=== PATIENT | female | born 1975 | race Two or more races ===

== ENCOUNTER 2024-07-07 17:11 | Inpatient (IN) | payer MEDICAID, SELFPAY ==
[2024-07-07 17:22] VITALS: BP 166/91; PULSE 105; RESP 18; TEMP 36.8; O2SAT 95; BMI 42.1
--- NOTE | 2024-07-07 17:25 | XR_ITS ---
Examination: CT abdomen and pelvis without contrast. Coronal 3-D reconstructions. Sagittal 2-D reconstructions. Date and time of exam:July 07, 2024 1837 hrs. Indications: Abdominal pain nausea vomiting today, history hernia repair CTDI: vol (mGy): 16.7 DLP: (mGycm): 974 Technique: Axial images of the abdomen have been obtained, 3 mm slice thickness Intravenous contrast material has not been administered. Low dose protocols were performed. One or more of the following dose reduction techniques were used; automated exposure control, adjustment of the mA and/or KV according to patient size, of iterative reconstruction technique. Findings: Diffuse severe fatty infiltration throughout the liver Contracted gallbladder, axial image 85 suspicious for small gallstones Spleen not enlarged No pancreatic or adrenal mass Mild bilateral renal parenchymal scar formation 1 mm midpole nonobstructing left renal calculus axial image 87 No hydronephrosis or ureteral calculi Normal appendix No bowel obstruction Scarring at the umbilical tract consistent with hernia repair Surgical clips in the pelvis as well as rectosigmoid sutures No pelvic mass Contracted urinary bladder Mild osteopenia Impression: Severe diffuse fatty infiltration throughout the liver Recommend hepatobiliary sonography follow-up to confirm gallstones 1 mm midpole nonobstructing left renal calculus Normal appendix Negative for bowel obstruction
--- NOTE | 2024-07-07 17:26 | PD.EDRME ---
Rapid Medical Screening Exam E Arrival date/time: 07/07/24 17:11 48-year-old female with a history of colon cancer, multiple abdominal surgeries, hernia repairs presents to the emergency room with a chief complaint of 10 out of 10 epigastric pain and tenderness, nausea, vomiting. I have greeted and performed a focused initial assessment of this patient. A comprehensive ED assessment and evaluation of the patient, analysis of all test results, and completion of the medical decision making process will be conducted by additional ED providers. Chief Complaint: Abdominal Pain Vital signs: Vital Signs Temperature 98.3 F 07/07/24 17:22 Pulse Rate 105 H 07/07/24 17:22 Respiratory Rate 18 07/07/24 17:22 Blood Pressure 166/91 H 07/07/24 17:22 Pulse Oximetry (%) 95 07/07/24 17:22 Oxygen Delivery Method Room Air 07/07/24 17:22 Vital signs reviewed by provider: Yes
[2024-07-07] MEDS: ONDANSETRON ODT 4 MG TABRAP PO (17:33)
[2024-07-07] MEDS: HYDROcodone/APAP 5/325 TABLET 1 TAB PO (17:33)
[2024-07-07 17:48] LABS: Collection Type, Urine Clean Catch
[2024-07-07 17:51] LABS: Basophils # (Auto) 0.1 Thou/mm3 (0.0-0.2); Basophils % (Auto) 1 % (0-2.5); Eosinophils # (Auto) 0.2 Thou/mm3 (0.0-0.5); Eosinophils % (Auto) 1 % (0-10); Hematocrit 39.2 % (36.0-46.0); Hemoglobin 12.9 g/dL (12.0-16.0); Immature Granulocytes % (Auto) 0 % (0-0); Immature Granulocytes Auto 0.05 Thou/mm3 (0.00-0.00); Lymphocytes # (Auto) 2.9 Thou/mm3 (1.0-4.8); Lymphocytes % (Auto) 22 % (10-50); Mean Corpuscular HGB Conc 32.9 g/dl (31.0-37.0); Mean Corpuscular Hemoglobin 28.9 pg (25.0-35.0); Mean Corpuscular Volume 88 fL (80-100); Monocytes # (Auto) 0.7 Thou/mm3 (0.0-0.8); Monocytes % (Auto) 5 % (0-12); Neutrophils # (Auto) 8.9 Thou/mm3 (1.8-7.7); Neutrophils % (Auto) 70 % (37-80); Nucleated Red Blood Cell % 0 /100 WBC (0); Platelet Count 285 Thou/mm3 (140-440); RDW Standard Deviation 42.6 fL (36.4-46.3); Red Blood Count 4.46 Miln/mm3 (4.00-5.20); White Blood Count 12.8 Thou/mm3 (3.6-11.0)
[2024-07-07 17:55] LABS: Bilirubin,Urine Negative (Negative); Blood,Urine Negative (Negative); Clarity,Urine Clear (Clear/Hazy); Color,Urine Lt-Yellow (Lt Yel-Yel); Glucose, Urine Negative (Negative); Ketones,Urine Negative (Negative); Leukocyte Esterase,Urine Positive (Negative); Nitrite,Urine Negative (Negative); PH,Urine 7.5 (5.0-7.0); Protein,Urine 1+ (Neg - Trace); RBC,Urine 8 /hpf (0-3); Specific Gravity,Urine 1.021 (1.001-1.035); Squamous Epithelial Cell,Urine 2 /hpf (0-5); Urobilinogen,Urine Negative mg/dL (0.0-1.0); WBC,Urine 6 /hpf (0-5)
[2024-07-07 17:56] LABS: HCG Qualitative,Urine Negative
[2024-07-07 18:05] LABS: Alanine Aminotransferase 214 U/L (10-49); Albumin, Serum 4.8 gm/dL (3.5-5.0); Albumin/Globulin Ratio 1.4 (1.2-2.2); Alkaline Phosphatase 148 U/L (46-116); Anion Gap 7 (7-16); Aspartate Amino Transferase 155 U/L (0-34); BUN/Creatinine Ratio 18 Ratio (12-20); Bilirubin,Total 0.4 mg/dL (0.3-1.2); Blood Urea Nitrogen 18 mg/dL (9-23); Calcium 10.9 mg/dL (8.3-10.6); Calcium (Corrected) 10.9 mg/dL (8.5-10.1); Carbon Dioxide 31.5 mMol/L (20.0-31.0); Chloride 101 mMol/L (98-107); Estimated Creatinine Clearance 89.1 mL/min (>60); Globulin 3.4 gm/dL (2.3-3.5); Glucose 212 mg/dL (74-106); Lipase 36 U/L (12-53); Osmolality,Calculated 285 (275-295); Potassium 4.2 mMol/L (3.4-5.1); Sodium 139 mMol/L (136-145); Total Protein 8.2 gm/dL (5.7-8.2); eGFR > 60 See Note
--- NOTE | 2024-07-07 19:23 | PC.NURSE ---
Pt to room 6 at this time from lobby; assumed care.
[2024-07-07 19:28] VITALS: BP 162/106; PULSE 115; RESP 17; TEMP 36.9; O2SAT 96
--- NOTE | 2024-07-07 19:28 | EDNOTE_ITS ---
ED Abdominal Pain RME/HPI General Chief Complaint: Abdominal Pain Stated complaint: ABD PAIN, N/V Arrival date/time: 07/07/24 17:11 Source: patient Mode of arrival: ambulatory Limitations: no limitations RME / HPI RME / HPI narrative: 07/07/24 17:11 48-year-old female with a history of colon cancer, multiple abdominal surgeries, hernia repairs presents to the emergency room with a chief complaint of 10 out of 10 epigastric pain and tenderness, nausea, vomiting. I have greeted and performed a focused initial assessment of this patient. A comprehensive ED assessment and evaluation of the patient, analysis of all test results, and completion of the medical decision making process will be conducted by additional ED providers. Chief complaint: Abdominal pain HPI: Ms. Mendes is a speaking 48-year-old female with past medical history of colon cancer s/p colectomy and anastomosis, ivy-umbilical hernia s/p repair, nonalcoholic steatohepatitis, obesity, primary hypertension and hkw-yqqwlwi-zgvwjcxst type II diabetes mellitus, who presented to the ED with diffuse abdominal pain that started around 3 AM on 07/07/2024. Patient's pain progressively got worse over the last 15 hours. Her last meal was breakfast around 10 AM, she has been unable to tolerate any oral intake since then. She endorses having multiple episodes of vomiting, nonbilious nonbloody, with severe nausea. She denies any fevers, diarrhea or constipation. Her last bowel movement was at 6 AM this morning. Medication list: Metformin Antihypertensives Pending med rec Allergies: NKFDA Social history: Marital?Status:? Tobacco?Use:?Denies ETOH?Use:?Rarely Drug?Note:?Denies Social?History?Note:?Lives?at home with family Family history: unsure Related Data Allergies Allergy/AdvReac Type Severity Reaction Status Date / Time No Known Allergies Allergy Verified 07/07/24 17:13 Review of Systems Review of Systems Systems Reviewed: All systems reviewed, normal except as documented Narrative Review of Systems: GENERAL: Denies fevers/chills or diaphoresis. HEENT: Denies headache or visual/hearing changes. Denies nasal discharge. NEURO: Denies unusual weakness or difficulty speaking. CARDIO: Denies chest pain or palpitations. PULM: Denies SOB, coughing, or wheezing. GI: Diffuse abdominal pain, N/V, no C/D. Reports having BMs URO: Denies burning/itching/pain/urinary changes. ONLINE MARKETING SPECIALIST: Denies menstrual changes, hot flashes. MSK/EXT/SKIN: Denies joint/skeletal/muscle pain, issues/changes in upper or lower extremities, itchiness, or superficial pain. PSYCH: Cooperative, pleasant mood & affect. The rest of the review of systems is otherwise negative. Past Medical History Social History SMOKING STATUS: Never smoker ED Exam Narrative Physical exam: Constitutional Alert, oriented x4, obese HEENT Vision grossly intact. Patent nares. Trachea midline. Respiratory Chest normal on inspection and clear to auscultation bilaterally. Cardiovascular S1 and S2 audible, RRR. No murmurs or carotid bruit. No gross JVD. Abdominal Soft, diffusely tender to palpation. BS +, hepatomegaly, no fluid thrill Genitourinary No bladder tenderness, no flank pain. Normal to palpation. Musculoskeletal Extremities tone within normal limits. 1+ LE edema. Neurological CN II - XII grossly intact. Extremity motor and sensation grossly intact. Skin Warm, dry and intact. No apparent lesions. Psychiatric Patient has a good affect, is cooperative. General Limitations: Present no limitations Course Quality Measures none Orders Category Date Time Status Textile Knitter STAT Care 07/07/24 20:03 Active Continuous Pulse Oximetry STAT Care 07/07/24 20:03 Completed EKG (ED ONLY) *Do not use* NOW Care 07/07/24 20:03 Completed In and Out Catheter X1PRN Care 07/07/24 20:03 Active Insert IV NOW Care 07/07/24 20:03 Active NPO NOW Care 07/07/24 23:36 Active NPO STAT Care 07/07/24 20:03 Active Strict Intake and Output Routine Care 07/07/24 20:03 Ordered Consult to Gastroenterology Routine Cons 07/07/24 23:32 Ordered Diet NPO (NOW) Diet 07/07/24 23:[address] abdomen pelvis wo con Stat Exams 07/07/24 17:25 Completed EKG (ED Only) Stat Exams 07/07/24 20:03 Ordered NM HIDA w pharm Stat Exams 07/07/24 23:33 Ordered US gall bladder Stat Exams 07/07/24 20:02 Completed XR chest 1V portable Stat Exams 07/07/24 20:05 Completed B-Type Natriuretic Peptide Stat Lab 07/07/24 20:20 Completed Blood Culture (Lab) Stat Lab 07/07/24 21:28 Received CBC Stat Lab 07/07/24 17:35 Completed CEA [Carcinoembryonic Antigen] Stat Lab 07/07/24 23:32 Ordered CMP [Comprehensive Metabolic Panel] Stat Lab 07/07/24 17:35 Completed HCG Qualitative,Urine Stat Lab 07/07/24 17:35 Completed LDH (Lactate Dehydrogenase) Stat Lab 07/07/24 20:20 Completed Lactate (Lactic Acid) Stat Lab 07/07/24 20:20 Completed Lactic Acid [Lactate (Lactic Acid)] Routine Lab 07/07/24 23:30 Ordered Lactic Acid, 3 HR Stat Lab 07/07/24 23:33 Ordered Lipase Stat Lab 07/07/24 17:35 Completed Magnesium Stat Lab 07/07/24 20:20 Completed Partial Thromboplastin Time Stat Lab 07/07/24 20:20 Completed Phosphorous Stat Lab 07/07/24 20:20 Completed Procalcitonin Stat Lab 07/07/24 20:20 Completed Prothrombin Time with INR Stat Lab 07/07/24 20:20 Completed Troponin I Stat Lab 07/07/24 20:20 Completed UA [Urinalysis] Stat Lab 07/07/24 17:35 Completed Urine Culture Stat Lab 07/07/24 17:25 Received Acetaminophen Tab [Tylenol Tab] Med 07/07/24 20:40 Discontinued 650 mg PO X1 ONE HYDROcodone*/APAP 5/325 [[place] 5/325] Med 07/07/24 17:25 Discontinued 1 tab PO X1 ONE Magnesium Sulfate 2 GM Ivpb [Magnesium Sulfate Ivpb] Med 07/07/24 22:10 Active 2 gm in 50 ml IV X1 Morphine Inj Med 07/07/24 20:40 Active 2 mg IVP Q2HR PRN Ondansetron Inj [Zofran Inj] Med 07/07/24 22:00 Active 4 mg IV Q2HR PRN Ondansetron Odt [Zofran Odt] Med 07/07/24 17:25 Discontinued 4 mg PO X1 ONE Pantoprazole Inj [Protonix Inj] Med 07/07/24 20:42 Discontinued 40 mg IV X1 ONE Piper/Tazo 3.375 gm [Zosyn] Med 07/07/24 20:03 Discontinued 3.375 gm in 50 ml IV X1 Sodium Chloride 0.9% 1000 ml [Ns] 1,000 ml Med 07/07/24 22:09 Discontinued IV 999 mls/hr bisacodyL [Dulcolax] Med 07/07/24 23:18 Stop Req 5 mg PO X1 ONE Vital Signs Vital signs: Vital Signs Temperature 98.3 F 07/07/24 17:22 Pulse Rate 105 H 07/07/24 17:22 Respiratory Rate 18 07/07/24 17:22 Blood Pressure 166/91 H 07/07/24 17:22 Pulse Oximetry (%) 95 07/07/24 17:22 Oxygen Delivery Method Room Air 07/07/24 17:22 Abdominal Pain MDM MDM Narrative MDM Narrative:: Scribe Attestation: IMelany am scribing for and in the presence of Dr. Li. Provider Notation: Although this document has been carefully reviewed, there may still be some phonetic and other typographical errors. These errors are purely grammatical due to imperfections in the software program and should not be construed in any way to compromise the substance of the patient's medical care during this visit. Patient data External records reviewed:: [facility] previous records Clinical information provided by:: patient Social determinants that could affect healthcare access:: none Patient has the following chronic illnesses:: colon cancer, multiple abdominal surgeries, hernia repairs How is presenting disease/condition affected by chronic disease/condition?: uneffected by Evaluation data The following diagnostics were reviewed and interpreted by me:: lab results and radiology exam(s) Lab and/or radiology exams considered but not ordered:: None Interpretation Summary: CXR shows normal cardiac silhouette, normal sharp diaphragmatic edge, no infiltrates, normal costophrenic angles, according to my interpretation. Examination: CT abdomen and pelvis without contrast. Date and time of exam:July 07, 2024 1837 hrs. Indications: Abdominal pain nausea vomiting today, history hernia repair Findings: Diffuse severe fatty infiltration throughout the liver Contracted gallbladder, axial image 85 suspicious for small gallstones Spleen not enlarged No pancreatic or adrenal mass Mild bilateral renal parenchymal scar formation 1 mm midpole nonobstructing left renal calculus axial image 87 No hydronephrosis or ureteral calculi Normal appendix No bowel obstruction Scarring at the umbilical tract consistent with hernia repair Surgical clips in the pelvis as well as rectosigmoid sutures No pelvic mass Contracted urinary bladder Mild osteopenia Impression: Severe diffuse fatty infiltration throughout the liver Recommend hepatobiliary sonography follow-up to confirm gallstones 1 mm midpole nonobstructing left renal calculus Normal appendix Negative for bowel obstruction Dictated By: Dandre Casey MD Medications / Prescriptions Medications or Prescriptions considered but not ordered:: None Medication administrations:: Medication Administration History Bisacodyl (Bisacodyl 5 Mg Tabec) 5 mg PO X1 ONE; Protocol Stop: 07/07/24 23:19 Magnesium Sulfate (Magnesium Sulfate Ivpb) 2 gm in 50 mls @ 25 mls/hr IV X1 ONE Stop: 07/08/24 00:09 Last Admin: 07/07/24 22:52 Dose: 25 mls/hr Documented By: KG Morphine Sulfate (Morphine Sulf Inj 10 Mg/Ml Vial) 2 mg IVP Q2HR PRN PRN Reason: pain 6-10 Stop: 07/12/24 21:59 Last Admin: 07/07/24 21:44 Dose: 2 mg Documented By: KG Ondansetron HCl (Ondansetron Inj 2 Mg/Ml Inj 2 Ml) 4 mg IV Q2HR PRN; Protocol PRN Reason: NAUSEA OR VOMITING Stop: 08/06/24 21:59 Last Admin: 07/07/24 21:44 Dose: 4 mg Documented By: KG Discontinued Medications Acetaminophen (Acetaminophen 325 Mg Tablet) 650 mg PO X1 ONE Stop: 07/07/24 20:41 Last Admin: 07/07/24 21:00 Dose: 650 mg Documented By: KG Hydrocodone Bitart/Acetaminophen (Hydrocodone/Apap 5/325 Tablet) 1 tab PO X1 ONE Stop: 07/07/24 17:26 Last Admin: 07/07/24 17:33 Dose: 1 tab Documented By: Piperacillin/Tazobactam/Dextrose (Zosyn) 3.375 gm in 50 mls @ 100 mls/hr IV X1 ONE Stop: 07/07/24 20:32 Last Infusion: 07/07/24 21:26 Dose: Infused Documented By: Admin: 07/07/24 20:56 Dose: 100 mls/hr Documented By: KG Sodium Chloride (Ns) 1,000 mls @ 999 mls/hr IV .Q1H1M ONE Stop: 07/07/24 23:09 Last Admin: 07/07/24 22:52 Dose: 999 mls/hr Documented By: KG Ondansetron HCl (Ondansetron Odt 4 Mg Tabrap) 4 mg PO X1 ONE; Protocol Stop: 07/07/24 17:26 Last Admin: 07/07/24 17:33 Dose: 4 mg Documented By: Pantoprazole Sodium (Pantoprazole Inj 40 Mg Vial) 40 mg IV X1 ONE Stop: 07/07/24 20:43 Last Admin: 07/07/24 20:57 Dose: 40 mg Documented By: KG As above Consultations Consultation(s) initiated? (list below): Yes Consultation #1 (Physician, Specialty, Details): GI - Dr Cuba Diagnosis Differential diagnosis abdominal pain: abdominal pain, constipation, pancreatitis and small bowel obstruction Most likely diagnosis given after review of the tests above:: Sepssi 2/2 UTI vs. cholecystitis vs. pancreatitis Admission Indicated Admission indicated?: indicated Admission Request Was there a request for admission?: Yes Admission Attestation Admission request attestation: Discussed case with Dr Chester from Hospitalist service regarding admission. Discussed patients ED course, exam findings, labs, and radiology results. The Hospitalist team agrees to accept the patient for admission. Disposition Plan Disposition Plan: Admit Discharge Attestation Discharge Attestation: Patient is a 48-year-old female who came into the ED for progressively worsening abdominal pain, she has a history of multiple abdominal surgeries. Initial body workup remarkable for leukocytosis 12.8, lactic acid 2.2 and transaminitis. Vitals showed tachycardia. CT abdomen is negative for any obstruction, gallbladder ultrasound negative. Patient was given morphine x 1, with significant improvement in abdominal pain. However when consuming water, epigastric pain was reproduced. Patient agrees to be admitted for further evaluation. Gastroenterology Dr. Cuba was consulted for recommendations, will get HIDA scan and keep patient n.p.o. for possible EGD in the morning. Hospitalist team informed, agrees to admit patient. Discharge Plan Plan Patient Disposition: HOME (Self Care) Patient condition on transfer: Stable Prescriptions/Referrals Referrals: Adrian Harding [Primary Care Provider] - In 1 week Problem List Clinical Impression: Abdominal pain Patient/Caregiver Discharge Instructions Print Language: Occitan Stand Alone Forms: [employer] Award Info., Patient Portal Info Letter
--- NOTE | 2024-07-07 19:50 | PC.NURSE ---
Dr. Li at the bedside,.
--- NOTE | 2024-07-07 20:02 | XR_ITS ---
Examination: Abdomen sonogram, Limited Date and time of exam: July 07, 2024 2019 hrs. Indications: Elevated liver function tests on laboratory examination today with right upper abdominal pain Technique: Real-time marcos scale transabdominal sonographic images of the upper abdomen obtained. Findings: Negative for gallstones Gallbladder wall 0.3 cm no edema Common bile duct 0.3 cm Pancreatic head 4.3 cm Liver 20.9 cm fatty infiltration no focal liver lesions Normal hepatopedal portal venous oh Patent IVC Impression: Normal gallbladder Pancreas is measured large by the technologist on this study but no pancreatic masses noted on the CT examination today Moderate hepatomegaly fatty infiltration
--- NOTE | 2024-07-07 20:05 | XR_ITS ---
Examination: AP chest single view Technique one AP portable upright chest single view Exam date and time: July 07, 20242036 hrs. Indications: Coughing today. Findings: Normal heart size. Lungs are clear. The osseous structures are intact Impression: No active disease
[2024-07-07 20:23] VITALS: PULSE 101
[2024-07-07 20:25] VITALS: BP 133/87; PULSE 101; RESP 20; O2SAT 96
--- NOTE | 2024-07-07 20:25 | PC.NURSE ---
platform power technician at the bedside for exam.
[2024-07-07 20:36] LABS: Lactate (Lactic Acid) 2.2 mMol/L (0.4-2.0)
[2024-07-07] MEDS: PIPER/TAZO 3.375 GM 3.375 GM/50 ML BAG IV (20:56)
[2024-07-07] MEDS: PANTOPRAZOLE INJ 40 MG VIAL IV (20:57)
[2024-07-07] MEDS: ACETAMINOPHEN 325 MG TABLET 650 MG PO (21:00)
[2024-07-07 21:03] LABS: B-Type Natriuretic Peptide < 20 pg/mL (0-100)
[2024-07-07 21:14] LABS: Prothrombin Time 10.6 Seconds (9.0-12.2)
[2024-07-07 21:34] LABS: Magnesium 1.7 mg/dL (1.6-2.6); Phosphorous 3.6 mg/dL (2.4-5.1); Procalcitonin 0.17 ng/ml (0.0-0.49); Troponin I < 0.002 ng/mL (0.0-0.045)
[2024-07-07] MEDS: ONDANSETRON INJ 2 MG/ML INJ 2 ML 4 MG IV (21:44)
[2024-07-07] MEDS: MORPHINE SULF INJ 10 MG/ML VIAL 2 MG IVP (21:44)
[2024-07-07 21:46] LABS: LDH (Lactate Dehydrogenase) 314 U/L (120-246)
[2024-07-07 21:47] VITALS: BP 101/75; PULSE 101; RESP 16; O2SAT 96
[2024-07-07] MEDS: Magnesium Sulfate 2 GM Ivpb 2 GM/50 ML BAG IV (22:52)
[2024-07-07] MEDS: SODIUM CHLORIDE 0.9% 1000 ML 1,000 ML 999 ML IV (22:52)
[2024-07-07 23:33] LABS: Reflex Lactate? Y
--- NOTE | 2024-07-07 23:33 | XR_ITS ---
Examination: SHANTANU, hepatobiliary radioisotope scan Gallbladder ejection fraction study. Date and time of exam: July 08, 2024 1354 hours INDICATIONS: Multiple abdominal wall hernia repairs, malignant neoplasm of the colon, elevated liver function tests and abdominal pain this week Technique: 6.2 mCi of 99M Hepatolite administered. Serial imaging then obtained from immediate through 60 minutes. 2.4 mcg selective catheter Kinevac administered for gallbladder ejection fraction study. Findings: Radioisotope activity within the liver is reasonably homogenous. Gallbladder, common bile duct small bowel activity noted Impression: Gallbladder activity Abnormal gallbladder ejection fraction, 13%, normal greater than 35%
[2024-07-07 23:42] LABS: Lactate (Lactic Acid) 1.1 mMol/L (0.4-2.0)
[2024-07-08] VITALS (12 sets, daily range): BP systolic 108–146; BP diastolic 72–93; PULSE 74–92; RESP 16–96; TEMP 36.3–36.9; O2SAT 94–98; BMI 42.1
--- NOTE | 2024-07-08 00:48 | PD.RESHP ---
Documentation for date of: 07/08/24 HPI History of Present Illness Chief complaint: Abdominal pain and Vomiting History of present illness: HPI: Patient is Italian-speaking, interview facilitated by registered healthcare centrifugal separator. Patient is a 48-year-old female with a past medical history significant for MASH, endometriosis, NIDDM type II, history of umbilical hernia and multiple abdominal wall hernias s/p repair, history of colon cancer s/p left hemicolectomy 2020. Patient presented today with a chief complaint of abdominal pain and vomiting. Patient stated that on 07/06/2024 she awoke from sleep at approximately 11 PM with severe epigastric abdominal pain. It was described as bloating, severe /10, no radiation, initially constant but now intermittent. No alleviating factors and aggravated by p.o. food and liquid intake. Patient's last meal was approximately 10 AM yesterday morning. Her pain was also associated with vomiting. She stated that that approximately 4 PM yesterday afternoon she began vomiting. Approximately 6 episodes she had before presenting to the emergency department. She endorsed food contents and denied bilious emesis, hematemesis and coffee-ground emesis. Patient also denied any recent painkillers or NSAID use. Last episode of emesis approximately 6 PM yesterday. Upon presentation to the ED pain initially decreased after hydrocodone and morphine and nausea initially subsided after Zofran. However after patient was offered water to drink and again her abdominal pain was aggrevated. ED course: BP 166/91 ----> 101/75, P101, RR 16, T98.4F, SpO2 96% on room air. Labs significant for NA 139, K4.2, Mg 1.7, CO2 31.5, BUN 18, CR 1, glucose 212, AST 155, ALT 2.4, ALP 148, LDH 314. Urinalysis significant for 1+ protein and leukocyte esterase positive. Chest x-ray negative for any signs of consolidation, pulmonary edema or pleural effusion. Gallbladder ultrasound significant for level of 20.9 cm with fatty infiltrates. Abdomen/pelvis CT significant for fatty liver and contracted gallbladder. No signs of small bowel obstruction Patient received hydrocodone x 1, morphine 2 Mg IV x 1 and Zofran 4 Mg IV x 1. Patient will be admitted for workup and management of abdominal pain with vomiting. GI, Dr. Cuba consulted and closely following the case. Appreciate recommendations Review of Systems Review of Systems Narrative Review of Systems: GENERAL: Denies fever/chills or diaphoresis. HEENT: Denies headaches or visual changes. Denies discharge. Neuro: Denies unusual weakness or difficulty speaking. CARDIO: Denies chest pain or palpitations. PULM: Denies SOB, couging or wheezing. GI: As above URO: Denies buring/itching/pain/urinary changes. 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 MSK/EXT/SKIN: Denies joint/skeletal/muschle pain, issues/changes in upper or lower extremities, itchiness, or superficial pain. PSYCH: Cooperative, pleasant mood & affect. The rest of the review of systems is otherwise negative. Past Medical History Past Medical History Comments [facility] COMMENT: Past medical history: ? MASH ? Endometriosis ? NIDDM type II ? History of colon cancer s/p left hemicolectomy [2020] Medication list: ?Awaiting reconciliation Past surgical history: ? Umbilical hernia repair 5 months ago ? Multiple abdominal wall hernia repairs ? Laparoscopic ablation for endometriosis ? Left hemicolectomy for colon cancer 2020 Allergies: NKFDA Social history: Occupational History: Never worked Education Level: Attended elementary school in [place] Marital Status: with 4 kids Tobacco use: Denies ETHO use: Has about 1 drink per year Illicit drug use: Denies Social History Note: lives with and Kids Family History: Mother - DM, HTN Father- HTN Exam Vital Signs Temp Pulse Resp BP Pulse Ox O2 Del Method 98.1 F 92 18 113/72 97 Room Air 07/08/24 00:10 07/08/24 00:09 07/08/24 00:09 07/08/24 00:09 07/08/24 00:09 07/08/24 00:09 Narrative Exam Constitutional Alert, oriented x 3 and mild discomfort. Obese female on O2 via NC HEENT Vision grossly intact. Patent nares. Trachea midline Respiratory Chest normal on inspection and clear auscultation bilaterally Cardiovascular S1 and S2 audible, RRR. No murmurs carotid bruit. JVD not assessed Abdominal Soft, obese and tender to light palpation in right upper quadrant and epigastrium, mass extending from right costal margin to right lower quadrant most consistent with hepatomegaly. BS + Genitourinary No bladder tenderness, no flank pain. Normal to palpation Musculoskeletal Extremities tone within normal limits. No LE edema. Neurological CN II - XII grossly intact. Extremity motor and sensation grossly intact. Skin Warm, dry and intact. No apparent lesions. Psychiatric Patient has good affect, is cooperative Results: Labs 07/07/24 17:35 07/07/24 17:35 Labs: Short CBC 07/07/24 Range/Units 17:35 WBC 12.8 H (3.6-11.0) Thou/mm3 Hgb 12.9 (12.0-16.0) g/dL Hct 39.2 (36.0-46.0) % Plt Count 285 (140-440) Thou/mm3 BMP 07/07/24 17:35 Sodium 139 Potassium 4.2 Chloride 101 Carbon Dioxide 31.5 H BUN 18 Creatinine 1.0 Glucose 212 H Calcium 10.9 H Cardiac Enzymes 07/07/24 Range/Units 20:20 Troponin I < 0.002 (0.0-0.045) ng/mL Liver Function 07/07/24 Range/Units 17:35 Total Bilirubin 0.4 (0.3-1.2) mg/dL AST 155 H (0-34) U/L ALT 214 H (10-49) U/L Alkaline Phosphatase 148 H (46-116) U/L Albumin 4.8 (3.5-5.0) gm/dL Urine 07/07/24 Range/Units 17:35 Urine Color Lt-Yellow (Lt Yel-Yel) Urine Clarity Clear (Clear/Hazy) Urine pH 7.5 H (5.0-7.0) Ur Specific Novi 1.021 (1.001-1.035) Urine Protein 1+ A (Neg - Trace) Urine Glucose (UA) Negative (Negative) Quality Measures Quality Measures none Medications Home Medications and Allergies Allergies Allergy/AdvReac Type Severity Reaction Status Date / Time No Known Allergies Allergy Verified 07/07/24 17:13 Visit Medications Albuterol/Ipratropium (Albuterol/Ipratropium (Duoneb) Rt Poonam 3 Ml Nebu) 3 ml INH Q2HR PRN PRN Reason: SHORTNESS OF BREATH OR WHEEZE Stop: 08/07/24 00:32 Dextrose (Dextrose 50%-Water Inj 50 Ml Syringe) 50 ml IV Q15MIN PRN PRN Reason: BG <50 OR BG <70 & pt unresponsive Stop: 08/07/24 00:44 Glucagon (Glucagon Inj 1 Mg Vial) 1 mg IM Q15MIN PRN PRN Reason: BG <70, and no IV access Heparin Sodium (Porcine) (Heparin Sod Inj 5000 Unit/Ml Vial) 5,000 unit SC Q8HR MARK Stop: 07/22/24 05:59 Insulin Human Lispro (Insulin Lispro (Admelog) 1 Unit/0.01 Ml Unit) 0 unit SC ACHS MARK; Protocol Stop: 08/07/24 07:29 Ketorolac Tromethamine (Ketorolac Inj 30 Mg/Ml Vial) 30 mg IVP Q6HR PRN PRN Reason: PAIN SCALE 4-10(Mod-Sev Stop: 07/13/24 00:42 Ondansetron HCl (Ondansetron Inj 2 Mg/Ml Inj 2 Ml) 4 mg IV Q2HR PRN; Protocol PRN Reason: NAUSEA OR VOMITING Stop: 08/06/24 21:59 Last Admin: 07/07/24 21:44 Dose: 4 mg Discontinued Medications Acetaminophen (Acetaminophen 325 Mg Tablet) 650 mg PO X1 ONE Stop: 07/07/24 20:41 Last Admin: 07/07/24 21:00 Dose: 650 mg Hydrocodone Bitart/Acetaminophen (Hydrocodone/Apap 5/325 Tablet) 1 tab PO X1 ONE Stop: 07/07/24 17:26 Last Admin: 07/07/24 17:33 Dose: 1 tab Bisacodyl (Bisacodyl 5 Mg Tabec) 5 mg PO X1 ONE; Protocol Stop: 07/07/24 23:19 Piperacillin/Tazobactam/Dextrose (Zosyn) 3.375 gm in 50 mls @ 100 mls/hr IV X1 ONE Stop: 07/07/24 20:32 Last Infusion: 07/07/24 21:26 Dose: Infused Sodium Chloride (Ns) 1,000 mls @ 999 mls/hr IV .Q1H1M ONE Stop: 07/07/24 23:09 Last Infusion: 07/07/24 23:53 Dose: Infused Magnesium Sulfate (Magnesium Sulfate Ivpb) 2 gm in 50 mls @ 25 mls/hr IV X1 ONE Stop: 07/08/24 00:09 Last Admin: 07/07/24 22:52 Dose: 25 mls/hr Morphine Sulfate (Morphine Sulf Inj 10 Mg/Ml Vial) 2 mg IVP Q2HR PRN PRN Reason: pain 6-10 Stop: 07/12/24 21:59 Last Admin: 07/07/24 21:44 Dose: 2 mg Ondansetron HCl (Ondansetron Odt 4 Mg Tabrap) 4 mg PO X1 ONE; Protocol Stop: 07/07/24 17:26 Last Admin: 07/07/24 17:33 Dose: 4 mg Pantoprazole Sodium (Pantoprazole Inj 40 Mg Vial) 40 mg IV X1 ONE Stop: 07/07/24 20:43 Last Admin: 07/07/24 20:57 Dose: 40 mg Assessment & Plan Plan Patient is Italian-speaking, interview facilitated by registered healthcare centrifugal separator. Patient is a 48-year-old female with a past medical history significant for MASH, endometriosis, NIDDM type II, history of umbilical hernia and multiple abdominal wall hernias s/p repair, history of colon cancer s/p left hemicolectomy 2020. Patient presented today with a chief complaint of abdominal pain and vomiting. Patient will be admitted for workup and management of abdominal pain with vomiting. 1. Abdominal pain 2. Vomiting?resolved Patient had 10/10 constant abdominal pain that woke her up from sleep on.5 Also had associated 6 episodes of vomiting food contents. On exam patient tender to light palpation right upper quadrant and epigastric. DDx: Gallbladder dyskinesia, acalculous cholecystitis, peptic ulcer disease, gastroenteritis, hepatitis A, endometriosis, partial SBO. Gallbladder ultrasound significant for level of 20.9 cm with fatty infiltrates. Abdomen/pelvis CT significant for fatty liver and contracted gallbladder. No signs of small bowel obstruction Plan: ? N.p.o. ? Lipid panel ordered ? EGD in the am ? HIDA scan today ordered ? Hepatitis panel ordered - CEA ordered ? Ondansetron 4 Mg IV Q2 hourly as needed for vomiting or nausea ? Ketorolac 30 Mg IV Q6 hourly as needed for pain. Opioids need to be discontinued at least 11-16 hours prior to HIDA scan. ? GI, Dr. Cuba consulted and is closely following the case. Appreciate recommendations. 3. MASH 4. Transaminitis Patient states that she has fatty liver with unsure of name of any medication that she is taking. Gallbladder ultrasound significant for level of 20.9 cm with fatty infiltrates. AST 135, ALT 214, ALP 148, LDH 314 Plan: ? Lipid panel ordered ? Monitor LFTs on CMP 5. Hypercalcemia On admission corrected Ca 10.9 Possibly secondary to dehydration from vomiting Plan: ? Normal saline maintenance IV fluids at 75 cc/h ? Monitor calcium on a.m. CMP 6. Fil-osqnfap-sptrngidn diabetes mellitus type 2 7. Obesity class III Patient says her home medication is metformin but unsure of the dose. Patient's BMI 42.1 Plan: ? Sliding scale insulin to cover for any glucose spikes ? Patient may benefit from Ozempic on discharge for management of both her diabetes and morbid obesity. ? Patient may also benefit from CGM on discharge. 8. History of colon cancer s/p left hemicolectomy 2020 Patient states that she had colon cancer and a colectomy performed 4 years ago. Abdomen/pelvis CT completed on 07/07/2024 findings include: Scarring at the umbilical tract consistent with hernia repair Surgical clips in the pelvis as well as rectosigmoid sutures Plan: ? Obtain medical records from colon surgery 9. Endometriosis Has had previous laparoscopic ablation 10. Asymptomatic Bacteruria Patient denies any increase in frequency, dysuria or LUTS. Urinalysis significant for 1+ protein and leukocyte esterase positive. No need for Antibiotics Health maintenance: Disposition: EGD, HIDA scan. Pain control Diet: NPO Lines: pIVs GI Prophylaxis: None Thrombo Prophylaxis: Heparin 5000 U sc q 8 hrly Code status: FULL CODE Plan of care discussed with Attending Dr. Byron Fine MD PGY 1 Attending Provider Attestation/Addendum 48-year-old obese female with colon cancer sp left hemicolectomy, history of hernia surgery, [facility] was seen in the ER complaining of abdominal pain nausea and vomiting. Ultrasound of the abdomen showed hepatomegaly with fatty infiltration. CT scan of the abdomen showed severe diffuse fatty infiltration of the liver & Nonobstructing left-sided kidney stone. The patient was referred to GI Dr. Cuba who recommended EGD and HIDA.
[2024-07-08] MEDS: KETOROLAC INJ 30 MG/ML VIAL IVP (01:33)
[2024-07-08] MEDS: HEPARIN SOD INJ 5000 UNIT/ML VIAL SC (05:44)
[2024-07-08] MEDS: SODIUM CHLORIDE 0.9% 1000 ML 1,000 ML 75 ML IV (05:44)
[2024-07-08 06:51] LABS: Basophils # (Auto) 0.1 Thou/mm3 (0.0-0.2); Basophils % (Auto) 1 % (0-2.5); Eosinophils # (Auto) 0.1 Thou/mm3 (0.0-0.5); Eosinophils % (Auto) 2 % (0-10); Hematocrit 34.6 % (36.0-46.0); Hemoglobin 11.3 g/dL (12.0-16.0); Immature Granulocytes % (Auto) 0 % (0-0); Immature Granulocytes Auto 0.02 Thou/mm3 (0.00-0.00); Lymphocytes # (Auto) 2.8 Thou/mm3 (1.0-4.8); Lymphocytes % (Auto) 33 % (10-50); Mean Corpuscular HGB Conc 32.7 g/dl (31.0-37.0); Mean Corpuscular Volume 89 fL (80-100); Monocytes # (Auto) 0.5 Thou/mm3 (0.0-0.8); Monocytes % (Auto) 6 % (0-12); Neutrophils # (Auto) 5.1 Thou/mm3 (1.8-7.7); Neutrophils % (Auto) 59 % (37-80); Nucleated Red Blood Cell % 0 /100 WBC (0); Platelet Count 269 Thou/mm3 (140-440); RDW Standard Deviation 44.2 fL (36.4-46.3); Red Blood Count 3.89 Miln/mm3 (4.00-5.20); White Blood Count 8.7 Thou/mm3 (3.6-11.0)
[2024-07-08 07:25] LABS: Glucose Estimated Average 197 mg/dL (80-131); Hemoglobin A1C 8.5 % Hgb (4.8-6.0)
[2024-07-08] MEDS: INSULIN LISPRO (AdmeLOG) 1 UNIT/0.01 ML UNIT SC (07:38)
--- NOTE | 2024-07-08 07:45 | PC.NURSE ---
Report given to biomedical manager viai phone.
[2024-07-08 07:48] LABS: Alanine Aminotransferase 160 U/L (10-49); Albumin, Serum 4.3 gm/dL (3.5-5.0); Albumin/Globulin Ratio 1.5 (1.2-2.2); Alkaline Phosphatase 125 U/L (46-116); Anion Gap 9 (7-16); Aspartate Amino Transferase 93 U/L (0-34); BUN/Creatinine Ratio 24 Ratio (12-20); Bilirubin,Total 0.4 mg/dL (0.3-1.2); Blood Urea Nitrogen 22 mg/dL (9-23); Calcium 9.5 mg/dL (8.3-10.6); Calcium (Corrected) 9.5 mg/dL (8.5-10.1); Carbon Dioxide 26.8 mMol/L (20.0-31.0); Cardiac Risk Estimate 4.8 RATIO (3.7-5.6); Chloride 105 mMol/L (98-107); Cholesterol 173 mg/dL (132-200); Creatinine (Component) 0.9 mg/dL (0.6-1.3); Globulin 2.8 gm/dL (2.3-3.5); Glucose 170 mg/dL (74-106); HDL Cholesterol 36 mg/dL (40-60); LDL Cholesterol,Calculated 89 mg/dL (0-130); Magnesium 2.3 mg/dL (1.6-2.6); Osmolality,Calculated 288 (275-295); Potassium 4.1 mMol/L (3.4-5.1); Sodium 141 mMol/L (136-145); Total Protein 7.1 gm/dL (5.7-8.2); Triglycerides 240 mg/dL (30-150); eGFR > 60 See Note
[2024-07-08 08:06] LABS: Thyroid Stimulating Hormone 1.34 uIU/mL (0.55-4.78); Troponin I < 0.002 ng/mL (0.0-0.045)
--- NOTE | 2024-07-08 09:31 | ESPR_ITS ---
<Statement entered by Kelley Bell MD - 07/08/24 13:32> Patient was admitted overnight for generalized pain abdomen pending HIDA and GI evaluation I discussed with and supervised my co-resident involved in the care of this patient. I agree with the assessment and plan as documented above. Kelley Bell,PGY-3 Disclaimer: Despite multiple revisions, due to the dictation software being used, the document below may not be free of grammatical errors including phonetic/typographic errors. However, this does not deter from our commitment to providing health care in the patient's best interest in mind.. Documentation for date of: 07/08/24 Subjective Subjective Interval history: Patient admitted this morning for acute abdominal pain. I saw the patient she reported her pain has much improved since yesterday. She is currently n.p.o. pending evaluation by GI, possible EGD and HIDA. Denies fever, chills, headaches, chest pain, sob, cough, worsening abdominal pain or other GI symptoms such as/N/V, or urinary symptoms. Exam Vital Signs Temp Pulse Resp BP Pulse Ox O2 Del Method O2 Flow Rate 98.1 F 79 16 117/92 H 94 L Room Air 1 07/08/24 00:10 07/08/24 06:00 07/08/24 06:00 07/08/24 06:00 07/08/24 06:00 07/08/24 06:00 07/08/24 02:00 Narrative Exam GENERAL * Normal appearing obese female, NAD, on room air HEENT * NCAT.?CORDELIA. Oral mucosa is moist. Patent Nares NECK * Supple, nontender, no thyromegaly, no meningismus, no JVD, no step offs CHEST * RRR, no m/g/r * CTAB, no w/r/r. Symmetrical chest rise. No intercostal subcostal retraction * Atraumatic, nontender, no crepitus, symmetrical expansion. ABDOMEN * Distended, soft, nontender. No guarding/rebound tenderness/masses. * Bowel sounds presents EXTREMITIES * Nontender, no cyanosis, no edema * No edema/cyanosis.? SKIN * Warm and dry, no jaundice/rashes. NEUROMUSCULAR * No lumbar or midline, no CVA, no paraspinal muscle spasm or tenderness. * Moves all 4 extremities well, with full ROM and good CSM. * YOUNG x4, CN II-XII grossly intact. * No focal neurologic deficits. PSYCHIATRY * Normal mood and affect, cooperative, no SI or HI or hallucinations. Objective Labs 07/08/24 06:10 07/08/24 06:10 Labs: Laboratory Results - last 24 hr 07/07/24 07/07/24 07/07/24 17:35 20:20 23:32 WBC 12.8 H RBC 4.46 Hgb 12.9 Hct 39.2 MCV 88 MCH 28.9 MCHC 32.9 RDW Std Deviation 42.6 Plt Count 285 Neut % (Auto) 70 Lymph % (Auto) 22 Norton % (Auto) 5 Eos % (Auto) 1 Baso % (Auto) 1 Neut # (Auto) 8.9 H Lymph # (Auto) 2.9 Norton # (Auto) 0.7 Eos # (Auto) 0.2 Baso # (Auto) 0.1 Immature Gran # (Auto) 0.05 H Absolute Nucleated RBC 0.00 Immature Gran % 0 Nucleated RBC % 0 PT 10.6 INR 1.0 APTT 24.0 Sodium 139 Potassium 4.2 Chloride 101 Carbon Dioxide 31.5 H Anion Gap 7 BUN 18 Creatinine 1.0 Estim Creat Clear Calc 89.1 eGFR > 60 BUN/Creatinine Ratio [address] Glu mg/dL Hemoglobin A1c Calculated Osmolality 285 Lactic Acid 2.2 H 1.1 Calcium 10.9 H Corrected Calcium 10.9 H Phosphorus 3.6 Magnesium 1.7 Total Bilirubin 0.4 AST 155 H ALT 214 H Alkaline Phosphatase 148 H Lactate Dehydrogenase 314 H Troponin I < 0.002 B-Natriuretic Peptide < 20 Total Protein 8.2 Albumin 4.8 Globulin 3.4 Albumin/Globulin Ratio 1.4 Triglycerides Cholesterol LDL Cholesterol, Calc HDL Cholesterol Cholesterol/HDL Ratio Lipase 36 Procalcitonin 0.17 TSH Ur Collection Type Clean Catch Urine Color Lt-Yellow Urine Clarity Clear Urine pH 7.5 H Ur Specific Badin 1.021 Urine Protein 1+ A Urine Glucose (UA) Negative Urine Ketones Negative Urine Blood Negative Urine Nitrite Negative Urine Bilirubin Negative Urine Urobilinogen (Auto) Negative Ur Leukocyte Esterase Positive Urine RBC 8 H Urine WBC 6 H Ur Squamous Epith Cells 2 Urine Bacteria None Urine HCG, Qual Negative 07/08/24 06:10 WBC 8.7 RBC 3.89 L Hgb 11.3 L Hct 34.6 L MCV 89 MCH 29.0 MCHC 32.7 RDW Std Deviation 44.2 Plt Count 269 Neut % (Auto) 59 Lymph % (Auto) 33 Norton % (Auto) 6 Eos % (Auto) 2 Baso % (Auto) 1 Neut # (Auto) 5.1 Lymph # (Auto) 2.8 Norton # (Auto) 0.5 Eos # (Auto) 0.1 Baso # (Auto) 0.1 Immature Gran # (Auto) 0.02 H Absolute Nucleated RBC 0.00 Immature Gran % 0 Nucleated RBC % 0 PT INR APTT Sodium 141 Potassium 4.1 Chloride 105 Carbon Dioxide 26.8 Anion Gap 9 BUN 22 Creatinine 0.9 Estim Creat Clear Calc 99.0 eGFR > 60 BUN/Creatinine Ratio 24 H Glucose [address] Glu mg/dL 197 H Hemoglobin A1c 8.5 H Calculated Osmolality 288 Lactic Acid Calcium 9.5 Corrected Calcium 9.5 Phosphorus Magnesium 2.3 Total Bilirubin 0.4 AST 93 H ALT 160 H Alkaline Phosphatase 125 H D Lactate Dehydrogenase Troponin I < 0.002 B-Natriuretic Peptide Total Protein 7.1 Albumin 4.3 D Globulin 2.8 Albumin/Globulin Ratio 1.5 Triglycerides 240 H Cholesterol 173 LDL Cholesterol, Calc 89 HDL Cholesterol 36 L Cholesterol/HDL Ratio 4.8 Lipase Procalcitonin TSH 1.34 Ur Collection Type Urine Color Urine Clarity Urine pH Ur Specific Badin Urine Protein Urine Glucose (UA) Urine Ketones Urine Blood Urine Nitrite Urine Bilirubin Urine Urobilinogen (Auto) Ur Leukocyte Esterase Urine RBC Urine WBC Ur Squamous Epith Cells Urine Bacteria Urine HCG, Qual Quality Measures Quality Measures none Assessment & Plan Assessment Current Active Medications: Generic Name Dose Route Start Last Admin Trade Name Freq PRN Reason Stop Dose Admin Albuterol/Ipratropium 3 ml 07/08/24 00:33 Albuterol/Ipratropium (Duoneb) Rt Poonam 3 Ml Nebu INH 08/07/24 00:32 Q2HR PRN SHORTNESS OF BREATH OR WHEEZE Dextrose 50 ml 07/08/24 00:45 Dextrose 50%-Water Inj 50 Ml Syringe IV 08/07/24 00:44 Q15MIN PRN BG <50 OR BG <70 & pt unresponsive Glucagon 1 mg 07/08/24 00:45 Glucagon Inj 1 Mg Vial IM Q15MIN PRN BG <70, and no IV access Heparin Sodium (Porcine) 5,000 unit 07/08/24 06:00 07/08/24 05:44 Heparin Sod Inj 5000 Unit/Ml Vial SC 07/22/24 05:59 5,000 unit Q8HR MARK Administration Sodium Chloride 1,000 mls @ 75 mls/hr 07/08/24 05:00 07/08/24 05:44 Ns IV 07/08/24 18:19 75 mls/hr .[id number] ONE Administration Insulin Human Lispro 0 unit 07/08/24 07:30 07/08/24 07:38 Insulin Lispro (Admelog) 1 Unit/0.01 Ml Unit SC 08/07/24 07:29 2 unit ACHS MARK Administration Protocol Ketorolac Tromethamine 30 mg 07/08/24 00:43 07/08/24 01:33 Ketorolac Inj 30 Mg/Ml Vial IVP 07/13/24 00:42 30 mg Q6HR PRN Administration PAIN SCALE 4-10(Mod-Sev Ondansetron HCl 4 mg 07/07/24 22:00 07/07/24 21:44 Ondansetron Inj 2 Mg/Ml Inj 2 Ml IV 08/06/24 21:59 4 mg Q2HR PRN Administration NAUSEA OR VOMITING Protocol Plan In summary: 48-year-old female PMHx of CAPELLAN, endometriosis, T2DM, abdominal hernias with multiple repairs, colon cancer s/p left hemicolectomy 2020. She presented with acute abdominal pain and vomiting. Admitted for GI workup. Continued NPO for EGD and HIDA scan. Appreciate recommendations from GI. Abdominal pain Vomiting (resolved) History of colon cancer s/p hemicolectomy Presenting with acute abdominal pain associated with vomiting, nonbloody stomach content. Abdominal ultrasound showed fatty liver infiltrate. CT redemonstrated fatty liver, no SBO. Currently, abdominal pain and vomiting manage with current regimen. Patient n.p.o. for GI workup. No new mass seen on CT. ? Control pain and nausea ? Continue NPO for EGD and HIDA ? Pending CEA Transaminitis CAPELLAN Admits to history of fatty liver. Fatty infiltrate and hepatomegaly seen on abdominal ultrasound and CT. Lipid panel showed TC 240, cholesterol 173, LDL 89. AST 135, ALT 214, ALP 148, LDH 314. ? Daily CMP ? Pending hepatitis panel Hypercalcemia (resolved) Admission, corrected calcium 10.9. Possibly 2/2 dehydration and vomiting. Repeat calcium normal after fluids. ? Daily CMP T2DM Obesity, class III A1c 6.4. GLUCOSE normal today. ? Holding home METFORMIN ? INSULIN sliding scale ? Recommended CGM on discharge, may benefit from OZEMPIC Asymptomatic Bacteruria UA showed leukocyte esterase. Patient asymptomatic otherwise without dysuria. Afebrile, no leukocytosis. No indications for biotics. ? Continue monitor History of endometriosis Has had previous laparoscopic ablation Health maintenance Diet: NPO GI prophylaxis: PROTONIX DVT prophylaxis: SCD, consider resuming HEPARIN after procedure Antibiotics: Not indicated CODE STATUS: Full code Disposition: Pending GI evaluation, EGD, HIDA Patient case was discussed with attending, Albert Reyes MD and senior residents Dr. Bell and Dr. Bland. Wander Bahena, DO PGYI Health maintenance: Disposition: EGD, HIDA scan. Pain control Diet: NPO Lines: pIVs GI Prophylaxis: None Thrombo Prophylaxis: Heparin 5000 U sc q 8 hrly Code status: FULL CODE Attending Provider Attestation/Addendum I reviewed labs, imaging, EKG, home medications and prior available records. Face to face evaluation was performed by me. I have personally examined the patient and discussed assessment and plan with the IM team. I reviewed the resident note and agree with the plan with exceptions as below. Intractable nausea and vomiting Type 2 diabetes mellitus Morbid obesity BMI 42.1 History of colon cancer status post hemicolectomy Consulted GI: Plan for EGD IV fluids Protonix IV 40 mg daily Management of nausea/vomiting as needed with Zofran Outpatient weight management
--- NOTE | 2024-07-08 11:37 | PC.CC ---
Pt Kacie Oh is a 48 yr old female, admitted to hospitalist services for ABD pain, vomiting, MASH,and transaminitis, hypercalcemia. ASW met with pt to complete initial assessment. At time of encounter pt is noted to be alert and oriented to person, place and situation. Pt expressed understanding admission order. Pt able to confirm demographic information. Pt is from home [address] in [place]. Per pt she lives in the home with her son. Pt identifies her daughter Vianey Arenas [phone] as surrogate DM. At baseline pt reports being independent with ambulation and with completing her ADLs. Pt does not require supplemental O2 in the home. Pt is diabetic on oral medication for management. Pt is not on dialysis. Pt is followed by [facility] for primary care. At time of D/c pt will return home with family providing transport.
[2024-07-08 17:38] LABS: Carcinoembryonic Antigen 1.5 ng/mL (0.0-5.0)
--- NOTE | 2024-07-08 18:40 | PC.NURSE ---
authorization for medical records was signed by pt today and faxed to [facility] for records re: pt's abd surgery
--- NOTE | 2024-07-08 19:01 | PD.IMCONS ---
HPI Data of Consult Requesting Physician: Albert Reyes MD Primary Care Provider: Adrian Harding Consult Narrative Reason for consult: Nausea vomiting severe abdominal pain History of present illness: 48 years old female presented to the emergency room with severe epigastric left upper quadrant abdominal pain with multiple episodes of nausea vomiting She is post resection of the left colon for colon carcinoma 2020 requiring no postoperative chemotherapy or radiation therapy She does have a history of underlying diabetes mellitus CAPELLAN, essential hypertension and multiple abdominal surgeries Including hernia repair No hematemesis melena or hematochezia Gallbladder ultrasound shows fatty liver hepatomegaly and 20.9 cm And prominent pancreas CT scan of the abdomen pelvis shows fatty liver and no other abnormalities CCK HIDA scan with ejection fraction ordered by request shows ejection fraction of only 13% cc:: cc: Albert Reyes MD Review of Systems Review of Systems Systems Reviewed: All systems reviewed, normal except as documented Past Medical History Surgical History OTHER SURGICAL HX: As in the history of present illness Meds Home Medications and Allergies Home Medications ?Medication ?Instructions ?Recorded ?Confirmed ?Type fenofibrate nanocrystallized 145 145 mg PO QDAY 07/08/24 07/08/24 History mg tablet losartan 50 mg tablet 50 mg PO QDAY 07/08/24 07/08/24 History metformin 1,000 mg tablet 1,000 mg PO BIDWMEAL 07/08/24 07/08/24 History omeprazole 40 mg capsule,delayed 40 mg PO DAILY UD 07/08/24 07/08/24 History release Allergies Allergy/AdvReac Type Severity Reaction Status Date / Time No Known Allergies Allergy Verified 07/07/24 17:13 Exam Vital Signs Temp Pulse Resp BP Pulse Ox O2 Del Method O2 Flow Rate 97.3 F 74 17 146/93 H 98 Room Air 1 07/08/24 16:00 07/08/24 16:00 07/08/24 16:00 07/08/24 16:00 07/08/24 16:00 07/08/24 16:00 07/08/24 02:00 Constitutional Comments: Appears to be in pain Routine Abdominal Exam Comments: Epigastric left upper quadrant tenderness positive bowel sounds Results Labs 07/08/24 06:10 07/08/24 06:10 Labs: Short CBC 07/08/24 Range/Units 06:10 WBC 8.7 (3.6-11.0) Thou/mm3 Hgb 11.3 L (12.0-16.0) g/dL Hct 34.6 L (36.0-46.0) % Plt Count 269 (140-440) Thou/mm3 BMP 07/08/24 06:10 Sodium 141 Potassium 4.1 Chloride 105 Carbon Dioxide 26.8 BUN 22 Creatinine 0.9 Glucose 170 H Calcium 9.5 Cardiac Enzymes 07/07/24 07/08/24 Range/Units 20:20 06:10 Troponin I < 0.002 < 0.002 (0.0-0.045) ng/mL Liver Function 07/08/24 Range/Units 06:10 Total Bilirubin 0.4 (0.3-1.2) mg/dL AST 93 H (0-34) U/L ALT 160 H (10-49) U/L Alkaline Phosphatase 125 H D (46-116) U/L Albumin 4.3 D (3.5-5.0) gm/dL Assessment and Plan Additional Assessment & Plan Additional Plan: # Pain abdomen epigastric left upper quadrant # Significant nausea vomiting Patient should undergo fiberoptic esophagogastroduodenoscopy with possible biopsies under intravenous moderate sedation Patient does have bili dyskinesia Before recommending any surgical intervention She should have invasive GI workup Informed consent obtained Proceed with tentatively scheduled for tomorrow Clear liquid diet CEA level Other medical problems include # Diabetes mellitus type 2 # Colon carcinoma status post left hemicolectomy with primary anastomosis 2020 # Hyperlipidemia # Essential hypertension Thank you very much for the opportunity to participate in the care of this patient
[2024-07-09] VITALS (14 sets, daily range): BP systolic 111–176; BP diastolic 70–102; PULSE 17–98; RESP 14–98; TEMP 36.1–36.6; O2SAT 92–99
[2024-07-09 02:07] LABS: Hepatitis A Antibody IgM Non Reactive (Non React); Hepatitis B Core Antibody IgM Non Reactive (Non React); Hepatitis B Surface Antigen Non Reactive (Non React); Hepatitis C Antibody Non Reactive (Non React)
[2024-07-09 05:57] LABS: Basophils # (Auto) 0.1 Thou/mm3 (0.0-0.2); Basophils % (Auto) 1 % (0-2.5); Eosinophils # (Auto) 0.2 Thou/mm3 (0.0-0.5); Eosinophils % (Auto) 3 % (0-10); Hematocrit 34.2 % (36.0-46.0); Hemoglobin 11.3 g/dL (12.0-16.0); Immature Granulocytes % (Auto) 0 % (0-0); Immature Granulocytes Auto 0.02 Thou/mm3 (0.00-0.00); Lymphocytes # (Auto) 2.4 Thou/mm3 (1.0-4.8); Lymphocytes % (Auto) 39 % (10-50); Mean Corpuscular Hemoglobin 29.4 pg (25.0-35.0); Mean Corpuscular Volume 89 fL (80-100); Monocytes # (Auto) 0.4 Thou/mm3 (0.0-0.8); Monocytes % (Auto) 7 % (0-12); Neutrophils # (Auto) 3.1 Thou/mm3 (1.8-7.7); Neutrophils % (Auto) 50 % (37-80); Nucleated Red Blood Cell % 0 /100 WBC (0); Platelet Count 241 Thou/mm3 (140-440); RDW Standard Deviation 43.1 fL (36.4-46.3); Red Blood Count 3.84 Miln/mm3 (4.00-5.20); White Blood Count 6.1 Thou/mm3 (3.6-11.0)
[2024-07-09 06:30] LABS: Alanine Aminotransferase 186 U/L (10-49); Albumin/Globulin Ratio 1.3 (1.2-2.2); Alkaline Phosphatase 123 U/L (46-116); Anion Gap 7 (7-16); Aspartate Amino Transferase 155 U/L (0-34); BUN/Creatinine Ratio 19 Ratio (12-20); Bilirubin,Total 0.5 mg/dL (0.3-1.2); Blood Urea Nitrogen 15 mg/dL (9-23); Calcium 9.5 mg/dL (8.3-10.6); Calcium (Corrected) 9.5 mg/dL (8.5-10.1); Chloride 107 mMol/L (98-107); Creatinine (Component) 0.8 mg/dL (0.6-1.3); Estimated Creatinine Clearance 111.4 mL/min (>60); Glucose 149 mg/dL (74-106); Magnesium 1.9 mg/dL (1.6-2.6); Osmolality,Calculated 285 (275-295); Phosphorous 4.1 mg/dL (2.4-5.1); Sodium 141 mMol/L (136-145); eGFR > 60 See Note
[2024-07-09] MEDS: PANTOPRAZOLE INJ 40 MG VIAL IV (08:20)
--- NOTE | 2024-07-09 11:49 | SUR.PHASEI ---
1149: Pt. AAO4, vitals stable, breathing unlabored, no complaint of pain or nausea, no dressing in place, no active bleed noted, report received from Smita GOMEZ.
--- NOTE | 2024-07-09 11:53 | PC.SS ---
rounding note: EGD today and possible discharge today /tomorrow home.
--- NOTE | 2024-07-09 12:14 | SUR.PHASEI ---
1214: NO CONTACT INFO IN PT. CHART TO UPDATE FAMILY.
--- NOTE | 2024-07-09 12:14 | SUR.PHASEI ---
1214: Pt. AAOx4, vitals stable, breathing unlabored, no complaint of pain or nausea, no dressing in place, no active bleed noted, pt. tolerated sips of soda well, gave report to Vidya GOMEZ prior to transfer to room 311B.
[2024-07-09] MEDS: NA SU/NAHCO3/KC/PEG (Golytely) 4,000 ML BTL 4000 ML PO (13:36)
--- NOTE | 2024-07-09 14:31 | ESPR_ITS ---
Documentation for date of: 07/09/24 Subjective Subjective Interval history: No acute overnight events. Patient continued n.p.o. for EGD later with GI. Denies fever, chills, headaches, chest pain, sob, cough, GI or urinary symptoms. Exam Vital Signs Temp Pulse Resp BP Pulse Ox O2 Del Method O2 Flow Rate 97.4 F 89 18 137/99 H 95 Room Air 3 07/09/24 12:50 07/09/24 12:50 07/09/24 12:50 07/09/24 12:50 07/09/24 12:50 07/09/24 12:50 07/09/24 11:35 Narrative Exam GENERAL * Normal appearing obese female, NAD, on room air HEENT * NCAT.?CORDELIA. Oral mucosa is moist. Patent Nares NECK * Supple, nontender, no thyromegaly, no meningismus, no JVD, no step offs CHEST * RRR, no m/g/r * CTAB, no w/r/r. Symmetrical chest rise. No intercostal subcostal retraction * Atraumatic, nontender, no crepitus, symmetrical expansion. ABDOMEN * Distended, soft, nontender. No guarding/rebound tenderness/masses. * Bowel sounds presents EXTREMITIES * Nontender, no cyanosis, no edema * No edema/cyanosis.? SKIN * Warm and dry, no jaundice/rashes. NEUROMUSCULAR * No lumbar or midline, no CVA, no paraspinal muscle spasm or tenderness. * Moves all 4 extremities well, with full ROM and good CSM. * YONUG x4, CN II-XII grossly intact. * No focal neurologic deficits. PSYCHIATRY * Normal mood and affect, cooperative, no SI or HI or hallucinations. Objective Labs 07/10/24 04:15 07/10/24 04:15 Labs: Laboratory Results - last 24 hr 07/07/24 07/08/24 07/09/24 23:32 06:10 05:40 WBC 6.1 RBC 3.84 L Hgb 11.3 L Hct 34.2 L MCV 89 MCH 29.4 MCHC 33.0 RDW Std Deviation 43.1 Plt Count 241 Neut % (Auto) 50 Lymph % (Auto) 39 [place] % (Auto) 7 Eos % (Auto) 3 Baso % (Auto) 1 Neut # (Auto) 3.1 Lymph # (Auto) 2.4 [place] # (Auto) 0.4 Eos # (Auto) 0.2 Baso # (Auto) 0.1 Immature Gran # (Auto) 0.02 H Absolute Nucleated RBC 0.00 Immature Gran % 0 Nucleated RBC % 0 Sodium 141 Potassium 4.0 Chloride 107 Carbon Dioxide 27.0 Anion Gap 7 BUN 15 Creatinine 0.8 Estim Creat Clear Calc 111.4 eGFR > 60 BUN/Creatinine Ratio 19 Glucose 149 H Calculated Osmolality 285 Calcium 9.5 Corrected Calcium 9.5 Phosphorus 4.1 Magnesium 1.9 Total Bilirubin 0.5 AST 155 H ALT 186 H Alkaline Phosphatase 123 H Total Protein 7.0 Albumin 4.0 Globulin 3.0 Albumin/Globulin Ratio 1.3 Carcinoembryonic Ag 1.5 Hepatitis A IgM Ab Non Reactive Hep Bs Antigen Non Reactive Hep B Core IgM Ab Non Reactive Hepatitis C Antibody Non Reactive Quality Measures Quality Measures none Assessment & Plan Assessment Current Active Medications: Generic Name Dose Route Start Last Admin Trade Name Freq PRN Reason Stop Dose Admin Albuterol/Ipratropium 3 ml 07/08/24 00:33 Albuterol/Ipratropium (Duoneb) Rt Poonam 3 Ml Nebu INH 08/07/24 00:32 Q2HR PRN SHORTNESS OF BREATH OR WHEEZE Dextrose 50 ml 07/08/24 00:45 Dextrose 50%-Water Inj 50 Ml Syringe IV 08/07/24 00:44 Q15MIN PRN BG <50 OR BG <70 & pt unresponsive Glucagon 1 mg 07/08/24 00:45 Glucagon Inj 1 Mg Vial IM Q15MIN PRN BG <70, and no IV access Heparin Sodium (Porcine) 5,000 unit 07/08/24 06:00 07/08/24 05:44 Heparin Sod Inj 5000 Unit/Ml Vial SC 07/22/24 05:59 5,000 unit Q8HR MARK Administration Insulin Human Lispro 0 unit 07/08/24 07:30 07/09/24 13:36 Insulin Lispro (Admelog) 1 Unit/0.01 Ml Unit SC 08/07/24 07:29 Not Given ACHS [facility] Protocol Ketorolac Tromethamine 30 mg 07/08/24 00:43 07/08/24 01:33 Ketorolac Inj 30 Mg/Ml Vial IVP 07/13/24 00:42 30 mg Q6HR PRN Administration PAIN SCALE 4-10(Mod-Sev Ondansetron HCl 4 mg 07/07/24 22:00 07/07/24 21:44 Ondansetron Inj 2 Mg/Ml Inj 2 Ml IV 08/06/24 21:59 4 mg Q2HR PRN Administration NAUSEA OR VOMITING Protocol Pantoprazole Sodium 40 mg 07/09/24 09:00 07/09/24 08:20 Pantoprazole Inj 40 Mg Vial IV 08/08/24 08:59 40 mg QDAY MARK Administration Plan In summary: 48-year-old female PMHx of CAPELLAN, endometriosis, T2DM, abdominal hernias with multiple repairs, colon cancer s/p left hemicolectomy 2020. She presented with acute abdominal pain and vomiting. Admitted for GI workup. Continued NPO for EGD and HIDA scan. Appreciate recommendations from GI. Abdominal pain Vomiting (resolved) History of colon cancer s/p hemicolectomy Presenting with acute abdominal pain associated with vomiting, nonbloody stomach content. Abdominal ultrasound showed fatty liver infiltrate. CT redemonstrated fatty liver, no SBO. Currently, abdominal pain and vomiting manage with current regimen. HIDA showed EF 13%, biliary dyskinesia. CEA negative. Patient n.p.o. for EGD. ? Control pain and nausea ? Continue NPO for EGD Transaminitis CAPELLAN Admits to history of fatty liver. Fatty infiltrate and hepatomegaly seen on abdominal ultrasound and CT. Lipid panel showed TC 240, cholesterol 173, LDL 89. AST 135, ALT 214, ALP 148, LDH 314. Worsening AST, likely 2/2 HIDA. Anticipate improvement over time. ? Daily CMP ? Pending hepatitis panel Hypercalcemia (resolved) Admission, corrected calcium 10.9. Possibly 2/2 dehydration and vomiting. Repeat calcium normal after fluids. ? Daily CMP T2DM Obesity, class III A1c 6.4. GLUCOSE normal today. ? Holding home METFORMIN ? INSULIN sliding scale ? Recommended CGM on discharge, may benefit from OZEMPIC Asymptomatic Bacteruria UA showed leukocyte esterase. Patient asymptomatic otherwise without dysuria. Afebrile, no leukocytosis. No indications for biotics. ? Continue monitor History of endometriosis Has had previous laparoscopic ablation Health maintenance Diet: NPO GI prophylaxis: PROTONIX DVT prophylaxis: SCD, consider resuming HEPARIN after procedure Antibiotics: Not indicated CODE STATUS: Full code Disposition: Pending GI evaluation, EGD, HIDA Patient case was discussed with attending, Cortez Hong MD and senior residents Dr. Bell and Dr. Bland. Wander Bahena, DO PGYI Senior Resident Attestation: The patient recently reported that her pain has been improving and today it was 2/10 in intensity over left upper abdominal quadrant. Her vitals were stable, CBC at baseline, with mild transaminitis on chemistry panel. HIDA scan was significant for EF 13%, so the patient was kept n.p.o. for EGD this evening. The patient will be discharged home after recommendation from GI physician Dr. Cuba. I discussed with and supervised the graduate intern physician involved in the care of this patient. I personally saw and examined the patient and discussed the assessment and plan with the entire medicine team, including my attending. I agree with the assessment and plan as documented above. Ihsan Bland MD PGY2 Internal Medicine Attending Provider Attestation/Addendum I have examined the patient, reviewed labs and imaging findings, discussed the case with the resident(s), and reviewed entered orders. I agree with the plan of care as outlined in this note, with these additional summaries/recommendations: Patient seen at bedside. No acute overnight events. Patient went for EGD today which showed esophagitis and biopsies taken x 2, gastritis with additional biopsies taken, and normal duodenum. Patient should follow-up with GI for pathology results in 2 weeks and continue antireflux regimen indefinitely. Given patient's history of colon carcinoma and surgical resection patient will go for colonoscopy. Start clear liquid diet and GoLytely prep. Patient completed HIDA scan which noted abnormal gallbladder activity with ejection fraction of 13%. If patient's symptoms persist we may consider surgical evaluation for possible biliary dyskinesia. Transaminitis present and most likely secondary to CAPELLAN. Acute hepatitis panel negative. Continue insulin sliding scale for diabetes mellitus type 2. A1c 6.4%. Patient would benefit from outpatient weight loss management. Repeat hematology and chemistry panel in AM. Dr. Hong
[2024-07-09] MEDS: INSULIN LISPRO (AdmeLOG) 1 UNIT/0.01 ML UNIT SC (20:27)
[2024-07-10] VITALS (16 sets, daily range): BP systolic 101–162; BP diastolic 74–104; PULSE 73–99; RESP 14–98; TEMP 36.1–37; O2SAT 94–100; BMI 41.9
[2024-07-10 06:07] LABS: Basophils # (Auto) 0.1 Thou/mm3 (0.0-0.2); Basophils % (Auto) 1 % (0-2.5); Eosinophils # (Auto) 0.1 Thou/mm3 (0.0-0.5); Eosinophils % (Auto) 2 % (0-10); Hematocrit 35.2 % (36.0-46.0); Hemoglobin 11.7 g/dL (12.0-16.0); Immature Granulocytes % (Auto) 0 % (0-0); Immature Granulocytes Auto 0.01 Thou/mm3 (0.00-0.00); Lymphocytes # (Auto) 2.9 Thou/mm3 (1.0-4.8); Lymphocytes % (Auto) 35 % (10-50); Mean Corpuscular HGB Conc 33.2 g/dl (31.0-37.0); Mean Corpuscular Hemoglobin 29.3 pg (25.0-35.0); Mean Corpuscular Volume 88 fL (80-100); Monocytes # (Auto) 0.5 Thou/mm3 (0.0-0.8); Monocytes % (Auto) 7 % (0-12); Neutrophils # (Auto) 4.7 Thou/mm3 (1.8-7.7); Neutrophils % (Auto) 56 % (37-80); Nucleated Red Blood Cell % 0 /100 WBC (0); Platelet Count 250 Thou/mm3 (140-440); RDW Standard Deviation 42.5 fL (36.4-46.3); White Blood Count 8.3 Thou/mm3 (3.6-11.0)
[2024-07-10 06:29] LABS: Alanine Aminotransferase 167 U/L (10-49); Albumin, Serum 4.5 gm/dL (3.5-5.0); Albumin/Globulin Ratio 1.6 (1.2-2.2); Alkaline Phosphatase 146 U/L (46-116); Anion Gap 12 (7-16); Aspartate Amino Transferase 121 U/L (0-34); BUN/Creatinine Ratio 14 Ratio (12-20); Bilirubin,Total 0.5 mg/dL (0.3-1.2); Blood Urea Nitrogen 11 mg/dL (9-23); Calcium 9.6 mg/dL (8.3-10.6); Calcium (Corrected) 9.6 mg/dL (8.5-10.1); Chloride 103 mMol/L (98-107); Creatinine (Component) 0.8 mg/dL (0.6-1.3); Estimated Creatinine Clearance 111.4 mL/min (>60); Globulin 2.9 gm/dL (2.3-3.5); Glucose 140 mg/dL (74-106); Magnesium 1.8 mg/dL (1.6-2.6); Osmolality,Calculated 282 (275-295); Phosphorous 3.7 mg/dL (2.4-5.1); Potassium 3.6 mMol/L (3.4-5.1); Sodium 141 mMol/L (136-145); Total Protein 7.4 gm/dL (5.7-8.2); eGFR > 60 See Note
[2024-07-10] MEDS: PANTOPRAZOLE INJ 40 MG VIAL IV (08:50)
[2024-07-10] MEDS: INSULIN LISPRO (AdmeLOG) 1 UNIT/0.01 ML UNIT SC (11:22)
--- NOTE | 2024-07-10 15:24 | ESPR_ITS ---
<Statement entered by Kelley Bell MD - 07/10/24 18:33> Patient was examined bedside this morning, EGD was done yesterday which showed gastritis without bleeding, pending colonoscopy today. Patient denies pain abdomen, nausea and vomiting. Anticipate discharge after colonoscopy tomorrow I discussed with and supervised my co-resident involved in the care of this patient. I agree with the assessment and plan as documented above. Kelley Bell,PGY-3 Disclaimer: Despite multiple revisions, due to the dictation software being used, the document below may not be free of grammatical errors including phonetic/typographic errors. However, this does not deter from our commitment to providing health care in the patient's best interest in mind. Documentation for date of: 07/10/24 Subjective Subjective Interval history: No acute overnight events. Patient had EGD yesterday, tolerated procedure well. She is currently on GOLYTELY for colonoscopy later today. Denies fever, chills, headaches, chest pain, sob, cough, GI or urinary symptoms. Exam Vital Signs Temp Pulse Resp BP Pulse Ox O2 Del Method O2 Flow Rate 97.1 F 85 17 147/96 H 98 Room Air 3 07/10/24 12:00 07/10/24 12:00 07/10/24 12:00 07/10/24 12:00 07/10/24 12:00 07/10/24 12:00 07/09/24 16:00 Narrative Exam GENERAL * Normal appearing obese female, NAD, on room air HEENT * NCAT.?CORDELIA. Oral mucosa is moist. Patent Nares NECK * Supple, nontender, no thyromegaly, no meningismus, no JVD, no step offs CHEST * RRR, no m/g/r * CTAB, no w/r/r. Symmetrical chest rise. No intercostal subcostal retraction * Atraumatic, nontender, no crepitus, symmetrical expansion. ABDOMEN * Distended, soft, nontender. No guarding/rebound tenderness/masses. * Bowel sounds presents EXTREMITIES * Nontender, no cyanosis, no edema * No edema/cyanosis.? SKIN * Warm and dry, no jaundice/rashes. NEUROMUSCULAR * No lumbar or midline, no CVA, no paraspinal muscle spasm or tenderness. * Moves all 4 extremities well, with full ROM and good CSM. * YOUNG x4, CN II-XII grossly intact. * No focal neurologic deficits. PSYCHIATRY * Normal mood and affect, cooperative, no SI or HI or hallucinations. Objective Labs 07/11/24 04:20 07/11/24 04:20 Labs: Laboratory Results - last 24 hr 07/10/24 04:15 WBC 8.3 RBC 4.00 Hgb 11.7 L Hct 35.2 L MCV 88 MCH 29.3 MCHC 33.2 RDW Std Deviation 42.5 Plt Count 250 Neut % (Auto) 56 Lymph % (Auto) 35 [place] % (Auto) 7 Eos % (Auto) 2 Baso % (Auto) 1 Neut # (Auto) 4.7 Lymph # (Auto) 2.9 [place] # (Auto) 0.5 Eos # (Auto) 0.1 Baso # (Auto) 0.1 Immature Gran # (Auto) 0.01 H Absolute Nucleated RBC 0.00 Immature Gran % 0 Nucleated RBC % 0 Sodium 141 Potassium 3.6 Chloride 103 Carbon Dioxide 26.0 Anion Gap 12 BUN 11 Creatinine 0.8 Estim Creat Clear Calc 111.4 eGFR > 60 BUN/Creatinine Ratio 14 Glucose 140 H Calculated Osmolality 282 Calcium 9.6 Corrected Calcium 9.6 Phosphorus 3.7 Magnesium 1.8 Total Bilirubin 0.5 AST 121 H ALT 167 H Alkaline Phosphatase 146 H D Total Protein 7.4 Albumin 4.5 D Globulin 2.9 Albumin/Globulin Ratio 1.6 Quality Measures Quality Measures none Assessment & Plan Assessment Current Active Medications: Generic Name Dose Route Start Last Admin Trade Name Freq PRN Reason Stop Dose Admin Albuterol/Ipratropium 3 ml 07/08/24 00:33 Albuterol/Ipratropium (Duoneb) Rt Poonam 3 Ml Nebu INH 08/07/24 00:32 Q2HR PRN SHORTNESS OF BREATH OR WHEEZE Dextrose 50 ml 07/08/24 00:45 Dextrose 50%-Water Inj 50 Ml Syringe IV 08/07/24 00:44 Q15MIN PRN BG <50 OR BG <70 & pt unresponsive Glucagon 1 mg 07/08/24 00:45 Glucagon Inj 1 Mg Vial IM Q15MIN PRN BG <70, and no IV access Heparin Sodium (Porcine) 5,000 unit 07/08/24 06:00 07/08/24 05:44 Heparin Sod Inj 5000 Unit/Ml Vial SC 07/22/24 05:59 5,000 unit Q8HR MARK Administration Insulin Human Lispro 0 unit 07/08/24 07:30 07/10/24 11:22 Insulin Lispro (Admelog) 1 Unit/0.01 Ml Unit SC 08/07/24 07:29 1 unit ACHS MARK Administration Protocol Ketorolac Tromethamine 30 mg 07/08/24 00:43 07/08/24 01:33 Ketorolac Inj 30 Mg/Ml Vial IVP 07/13/24 00:42 30 mg Q6HR PRN Administration PAIN SCALE 4-10(Mod-Sev Ondansetron HCl 4 mg 07/07/24 22:00 07/07/24 21:44 Ondansetron Inj 2 Mg/Ml Inj 2 Ml IV 08/06/24 21:59 4 mg Q2HR PRN Administration NAUSEA OR VOMITING Protocol Pantoprazole Sodium 40 mg 07/09/24 09:00 07/10/24 08:50 Pantoprazole Inj 40 Mg Vial IV 08/08/24 08:59 40 mg QDAY MARK Administration Plan In summary: 48-year-old female PMHx of CAPELLAN, endometriosis, T2DM, abdominal hernias with multiple repairs, colon cancer s/p left hemicolectomy 2020. She presented with acute abdominal pain and vomiting. Admitted for GI workup. Continued NPO for EGD and HIDA scan. Appreciate recommendations from GI. Acute abdominal pain 2/2 Gastritis/esophagitis VS biliary dyskinesia Vomiting (resolved) History of colon cancer s/p hemicolectomy Presenting with acute abdominal pain associated with vomiting, nonbloody stomach content. Abdominal ultrasound showed fatty liver infiltrate. CT redemonstrated fatty liver, no SBO. Currently, abdominal pain and vomiting manage with current regimen. HIDA showed EF 13%, biliary dyskinesia. CEA negative. EGD showed gastritis and esophagitis. GI recommended PROTONIX indefinitely. ? Control pain and nausea ? Continue NPO for colonoscopy ? Pending colonoscopy given history of colon cancer Transaminitis (improving) CAPELLAN Admits to history of fatty liver. Fatty infiltrate and hepatomegaly seen on abdominal ultrasound and CT. Lipid panel showed TC 240, cholesterol 173, LDL 89. AST 135, ALT 214, ALP 148, LDH 314. Worsening AST, likely 2/2 HIDA. Anticipate improvement over time. ? Daily CMP ? Pending hepatitis panel Hypercalcemia (resolved) Admission, corrected calcium 10.9. Possibly 2/2 dehydration and vomiting. Repeat calcium normal after fluids. ? Daily CMP T2DM Obesity, class III A1c 6.4. GLUCOSE normal today. ? Holding home METFORMIN ? INSULIN sliding scale ? Recommended CGM on discharge, may benefit from OZEMPIC Asymptomatic Bacteruria UA showed leukocyte esterase. Patient asymptomatic otherwise without dysuria. Afebrile, no leukocytosis. Urine culture negative still. 48 hours blood culture negative. No indications for ANTIBIOTICS. ? Continue monitor ? Follow urine culture History of endometriosis Has had previous laparoscopic ablation Health maintenance Diet: NPO GI prophylaxis: PROTONIX DVT prophylaxis: SCD, consider resuming HEPARIN after procedure Antibiotics: Not indicated CODE STATUS: Full code Disposition: Pending GI evaluation, EGD, HIDA Patient case was discussed with attending, Cortez Hong MD and senior residents Dr. Bell and Dr. Bland. Wander Bahena DO PGYI Attending Provider Attestation/Addendum I have examined the patient, reviewed labs and imaging findings, discussed the case with the resident(s), and reviewed entered orders. I agree with the plan of care as outlined in this note, with these additional summaries/recommendations: Patient seen at bedside. No acute overnight events. Patient reports significant improvement in abdominal pain and nausea/vomiting. Patient went for EGD yesterday that showed esophagitis and biopsies taken x 2, gastritis with additional biopsies taken, and normal duodenum. Patient should follow-up with GI for pathology results in 2 weeks and continue antireflux regimen indefinitely. Given patient's history of colon carcinoma and surgical resection patient will go for colonoscopy today 07/10/24 with GI. S/P GoLytely prep. Patient completed HIDA scan which noted abnormal gallbladder activity with ejection fraction of 13%. If patient's symptoms return may need surgical evaluation at a later date for possible biliary dyskinesia. Transaminitis present and most likely secondary to CAPELLAN. Acute hepatitis panel negative. Continue insulin sliding scale for diabetes mellitus type 2. A1c 6.4%. Patient would benefit from outpatient weight loss management. Repeat hematology and chemistry panel in AM. Dr. Hong
--- NOTE | 2024-07-10 20:47 | PC.NURSE ---
Pt to endoscopy.
--- NOTE | 2024-07-10 21:47 | SUR.PHASEI ---
2139 To PACU able to lift head off of pillow, following simple commands continue to monitor pt vital signs and status
--- NOTE | 2024-07-10 22:17 | PC.NURSE ---
Pt back to her room from recovery via [facility]. Awake, alert and oriented, c/o some abdominal bloating trying to move around by walking. will cont to monitor.
--- NOTE | 2024-07-10 22:22 | SUR.PHASEI ---
2215 Transfer to room 383 in stable condition, awake and alert no complaints , no s/s of distress noted.
[2024-07-11] VITALS: BP 130/89; PULSE 101; RESP 18; TEMP 36.4; O2SAT 99
[2024-07-11 01:44] VITALS: PULSE 92; RESP 18; RESP 96; O2SAT 96
[2024-07-11 04:00] VITALS: BP 117/78; PULSE 98; RESP 18; TEMP 36.1; O2SAT 97
[2024-07-11 05:39] LABS: Basophils # (Auto) 0.1 Thou/mm3 (0.0-0.2); Basophils % (Auto) 1 % (0-2.5); Eosinophils # (Auto) 0.2 Thou/mm3 (0.0-0.5); Eosinophils % (Auto) 2 % (0-10); Hemoglobin 11.6 g/dL (12.0-16.0); Immature Granulocytes % (Auto) 0 % (0-0); Immature Granulocytes Auto 0.03 Thou/mm3 (0.00-0.00); Lymphocytes # (Auto) 2.6 Thou/mm3 (1.0-4.8); Lymphocytes % (Auto) 33 % (10-50); Mean Corpuscular HGB Conc 34.1 g/dl (31.0-37.0); Mean Corpuscular Hemoglobin 29.4 pg (25.0-35.0); Mean Corpuscular Volume 86 fL (80-100); Monocytes # (Auto) 0.5 Thou/mm3 (0.0-0.8); Monocytes % (Auto) 6 % (0-12); Neutrophils # (Auto) 4.6 Thou/mm3 (1.8-7.7); Neutrophils % (Auto) 58 % (37-80); Nucleated Red Blood Cell % 0 /100 WBC (0); Platelet Count 258 Thou/mm3 (140-440); RDW Standard Deviation 40.8 fL (36.4-46.3); Red Blood Count 3.95 Miln/mm3 (4.00-5.20); White Blood Count 7.9 Thou/mm3 (3.6-11.0)
[2024-07-11 06:03] LABS: Alanine Aminotransferase 167 U/L (10-49); Albumin, Serum 4.5 gm/dL (3.5-5.0); Albumin/Globulin Ratio 1.6 (1.2-2.2); Alkaline Phosphatase 138 U/L (46-116); Anion Gap 10 (7-16); Aspartate Amino Transferase 133 U/L (0-34); BUN/Creatinine Ratio 13 Ratio (12-20); Bilirubin,Total 0.7 mg/dL (0.3-1.2); Blood Urea Nitrogen 9 mg/dL (9-23); Calcium 9.6 mg/dL (8.3-10.6); Calcium (Corrected) 9.6 mg/dL (8.5-10.1); Carbon Dioxide 26.4 mMol/L (20.0-31.0); Chloride 103 mMol/L (98-107); Creatinine (Component) 0.7 mg/dL (0.6-1.3); Estimated Creatinine Clearance 127.3 mL/min (>60); Globulin 2.8 gm/dL (2.3-3.5); Glucose 143 mg/dL (74-106); Magnesium 1.8 mg/dL (1.6-2.6); Osmolality,Calculated 278 (275-295); Phosphorous 4.7 mg/dL (2.4-5.1); Potassium 3.4 mMol/L (3.4-5.1); Sodium 139 mMol/L (136-145); Total Protein 7.3 gm/dL (5.7-8.2); eGFR > 60 See Note
[2024-07-11 07:52] VITALS: PULSE 75; RESP 16; RESP 94; O2SAT 94
[2024-07-11 08:00] VITALS: BP 138/102; PULSE 89; RESP 17; TEMP 36.1; O2SAT 98
[2024-07-11] MEDS: INSULIN LISPRO (AdmeLOG) 1 UNIT/0.01 ML UNIT SC (08:21)
[2024-07-11] MEDS: PANTOPRAZOLE INJ 40 MG VIAL IV (08:21)
--- NOTE | 2024-07-11 11:22 | PC.SS ---
rounding note: Patient had colonoscopy yesterday. Pending d/c home.
[2024-07-11 12:00] VITALS: BP 145/100; PULSE 98; RESP 16; TEMP 36.2; O2SAT 97
--- NOTE | 2024-07-11 18:56 | ESDS_ITS ---
Planned Discharge Date 07/11/24 DS: Providers Provider Date of admission: 07/08/24 00:33 Primary care physician: Adrian Harding Admitting Provider: Vinicius Matthews MD Attending Provider on Admission: Cortez Hong MD Consults: 07/07/24 23:32 Consult to Gastroenterology Routine Comment: Consulting Provider: Ender Cuba 07/11/24 11:28 Consult to General Surgery Routine Comment: Consulting Provider: Diann Richey Attending Provider on DC: Ihsan Bland MD Discharging Provider: Ihsan Bland MD DS: Diagnosis Problem List Completed Was Problem List Reviewed/Reconciled?: Yes Hospital Course Hospital Course Hospital course: Patient is a 48-year-old female with a past medical history significant for MASH, endometriosis, NIDDM type II, history of umbilical hernia and multiple abdominal wall hernias s/p repair, history of colon cancer s/p left hemicolectomy 2020 presented with a chief complaint of abdominal pain and vomiting. Patient stated that on 07/06/2024 she awoke from sleep at approximately 11 PM with severe epigastric abdominal pain. It was described as bloating, severe 10/10, no radiation. Upon presentation to the ED pain initially decreased after hydrocodone and morphine and nausea initially subsided after Zofran. Abdominal ultrasound showed fatty liver infiltrate. CT redemonstrated fatty liver, no SBO. HIDA showed EF 13%, biliary dyskinesia. CEA negative. EGD showed gastritis and esophagitis. GI recommended anti reflux regimen indefinitely. Patient also underwent colonoscopy that was significant for hemorrhoids on peria nal exam, anastomotic site from the previous colonic surgery for colon carcinoma at 30 cm from the anal verge appears to be very normal. We consulted general surgeon Dr. De Leon regarding dyskinetic gallbladder. He recommended following up with him as an outpatient for possible surgical intervention. This morning, the patient reported doing well. Her discharge plan was discussed with her and see agreed with the plans. She was discharged home. Problems: Acute abdominal pain 2/2 Gastritis/esophagitis VS biliary dyskinesia Vomiting (resolved) History of colon cancer s/p hemicolectomy Transaminitis (improving) CAPELLAN Hypercalcemia (resolved) T2DM Obesity, class III Asymptomatic Bacteruria History of endometriosis Plans: Please follow-up with your PCP within 1 week of discharge. Please call general surgeon Dr. Rossi De Leon within a week for possible removal of gallbladder. Please follow-up with commercial loan reviewer Dr. Cuba in 2 weeks, and you are also recommended to get repeat colonoscopy in 2 years from now. You have been started on ondansetron 4 mg up to 3 times daily for nausea or vomiting -Your omeprazole 40 Mg capsule has been switched to pantoprazole 40 Mg daily, please take this medicine 45 minutes to 1 hour before food -Continue with all other medicines as prescribed -Recommended to return back to emergency department if your symptoms persist or does not improve. Time Spent with Patient Time attestation: Total time spent providing and/or coordinating discharge services: Greater than 35 minutes Exam Vital Signs Temp Pulse Resp BP Pulse Ox O2 Del Method O2 Flow Rate 97.1 F 98 16 145/100 H 97 Room Air 3 07/11/24 12:00 07/11/24 12:07/11/24 12:07/11/24 12:07/11/24 12:07/11/24 12:07/10/24 21:30 Narrative Exam General: No acute distress, Alert and Oriented x 3 HEENT: Moist mucous membranes, oropharynx clear Neck: Supple, No masses, No JVD CVS: S1S2 Regular rate and rhythm, No murmurs, rubs or gallops Lungs: Clear to auscultation with no accessory use, no wheeze no rhonchi Abd: Soft, NT/ND, +BS, no organomegaly Ext: No edema, warm and well perfused Skin: No rash Psych: Appropriate mood and affect Discharge Plan Plan Patient Disposition: HOME (Self Care) Patient condition on transfer: Stable Care Plan Goals: Please follow-up with your PCP within 1 week of discharge. Please call general surgeon Dr. Rossi De Leon within a week for possible removal of gallbladder. Please follow-up with commercial loan reviewer Dr. Cuba in 2 weeks, and you are also recommended to get repeat colonoscopy in 2 years from now. You have been started on ondansetron 4 mg up to 3 times daily for nausea or vomiting -Your omeprazole 40 Mg capsule has been switched to pantoprazole 40 Mg daily, please take this medicine 45 minutes to 1 hour before food -Continue with all other medicines as prescribed -Recommended to return back to emergency department if your symptoms persist or does not improve. Prescriptions/Referrals Prescriptions/Med Rec: New pantoprazole 40 mg tablet,delayed release (DR/EC) 40 mg PO QDAY Qty: 30 0RF ondansetron 4 mg tablet,disintegrating 4 mg PO Q8H PRN (Reason: nausea and vomiting) Qty: 30 0RF Continued losartan 50 mg Tablet 50 mg PO QDAY metformin 1,000 mg Tablet 1,000 mg PO BIDWMEAL fenofibrate nanocrystallized 145 mg Tablet 145 mg PO QDAY Discontinued omeprazole 40 mg capsule,delayed release(DR/EC) 40 mg PO DAILY UD Patient Comments: take 1 capsule by mouth 30 MINUTES PRIOR TO BREAKFAST/OTHER MEDS Rx Instructions: before breakfast Referrals: Ender Cuba MD [Physician] - Adrian Harding [Primary Care Provider] - Diann Richey MD [Physician] - Patient/Caregiver Discharge Instructions Discharge Activity: activity as tolerated Education Materials: Colonoscopy, Upper GI Endoscopy Print Language: Egyptian Stand Alone Forms: [employer] Award Info., Patient Portal Info Letter Discharge Order Discharge Orders: Discharge (Routine); Ordered 07/11/24 Ordered By: Ihsan Bland Quality Discharge Quality Measures VTE prophylaxis Attestestation MD Attestation I have examined the patient, reviewed labs and imaging findings, discussed the case with the resident(s), and reviewed entered orders. I agree with the plan of care as outlined in this note. Dr. Hong
--- NOTE | 2024-07-11 20:30 | PD.IMPROG ---
Documentation for date of: 07/11/24 Subjective Subjective Interval history: Late entry for the note Case discussed with the internal medicine team Okay to discharge patient home to be followed by surgical specialty in the PCP for possible laparoscopic cholecystectomy for biliary dyskinesia Colonoscopy negative for any evidence of recurrent colon carcinoma Exam Vital Signs Temp Pulse Resp BP Pulse Ox O2 Del Method O2 Flow Rate 97.1 F 98 16 145/100 H 97 Room Air 3 07/11/24 12:00 07/11/24 12:00 07/11/24 12:00 07/11/24 12:00 07/11/24 12:00 07/11/24 12:00 07/10/24 21:30 Objective Labs 07/11/24 04:20 07/11/24 04:20 Labs: Laboratory Results - last 24 hr 07/11/24 04:20 WBC 7.9 RBC 3.95 L Hgb 11.6 L Hct 34.0 L MCV 86 MCH 29.4 MCHC 34.1 RDW Std Deviation 40.8 Plt Count 258 Neut % (Auto) 58 Lymph % (Auto) 33 [place] % (Auto) 6 Eos % (Auto) 2 Baso % (Auto) 1 Neut # (Auto) 4.6 Lymph # (Auto) 2.6 [place] # (Auto) 0.5 Eos # (Auto) 0.2 Baso # (Auto) 0.1 Immature Gran # (Auto) 0.03 H Absolute Nucleated RBC 0.00 Immature Gran % 0 Nucleated RBC % 0 Sodium 139 Potassium 3.4 Chloride 103 Carbon Dioxide 26.4 Anion Gap 10 BUN 9 Creatinine 0.7 Estim Creat Clear Calc 127.3 eGFR > 60 BUN/Creatinine Ratio 13 Glucose 143 H Calculated Osmolality 278 Calcium 9.6 Corrected Calcium 9.6 Phosphorus 4.7 Magnesium 1.8 Total Bilirubin 0.7 AST 133 H ALT 167 H Alkaline Phosphatase 138 H Total Protein 7.3 Albumin 4.5 Globulin 2.8 Albumin/Globulin Ratio 1.6 Impressions Impression: # Biliary dyskinesia # Gastritis # Esophagitis Plan As per HPI Assessment & Plan A&P Narrative # Pain abdomen epigastric left upper quadrant # Significant nausea vomiting Patient should undergo fiberoptic esophagogastroduodenoscopy with possible biopsies under intravenous moderate sedation Patient does have bili dyskinesia Before recommending any surgical intervention She should have invasive GI workup Informed consent obtained Proceed with tentatively scheduled for tomorrow Clear liquid diet CEA level Other medical problems include # Diabetes mellitus type 2 # Colon carcinoma status post left hemicolectomy with primary anastomosis 2020 # Hyperlipidemia # Essential hypertension Thank you very much for the opportunity to participate in the care of this patient Time Spent With Patient Time: Total time spent is greater than 50% in coordination of care (as documented) at patient's floor/unit and/or counseling patient:
== END 2024-07-11 16:45 | disposition home or self-care (01) | DRG 241 ==
LOC: SERX 23:11 → SERHOLD 07-08 00:57 → S3EX 07-08 08:16 → S3SX 07-10 16:52
PROVIDERS: Nurse Practitioner Family; Specialist; Student in an Organized Health Care Education/Training Program; Admitting Provider Internal Medicine; Emergency Provider Emergency Medicine; PCP Internal Medicine; Visit Provider Student in an Organized Health Care Education/Training Program
PROC: 0DB58ZX Excision of Esophagus, Via Natural or Artificial Opening Endoscopic, Diagnostic (ICD-10-PCS; CPT 43239; principal; 2024-07-09 16:00)
PROC: 0DJD8ZZ Inspection of Lower Intestinal Tract, Via Natural or Artificial Opening Endoscopic (ICD-10-PCS; CPT 45378; principal; 2024-07-10 20:30)
DX: K29.70 Gastritis, unspecified, without bleeding (principal); K75.81 Nonalcoholic steatohepatitis (NASH); Z90.49 Acquired absence of other specified parts of digestive tract; Z79.84 Long term (current) use of oral hypoglycemic drugs; E11.9 Type 2 diabetes mellitus without complications; Z68.41 Body mass index [BMI] 40.0-44.9, adult; N20.0 Calculus of kidney; E66.813 Obesity, class 3; E83.52 Hypercalcemia; R82.71 Bacteriuria; K82.8 Other specified diseases of gallbladder; K20.90 Esophagitis, unspecified without bleeding; Z85.038 Personal history of other malignant neoplasm of large intestine; I10 Essential (primary) hypertension; E78.5 Hyperlipidemia, unspecified; K64.9 Unspecified hemorrhoids
CPT/HCPCS: 36415; 71045; 74176; 76705; 78227; 80053; 80061; 80074; 81001; 81025; 82378; 83036; 83605; 83615; 83690; 83735; 83880; 84100; 84145; 84443; 84484; 85025; 85610; 85730; 87040; 87086; 93005; 96365; 96366; 96367; 96372; 96375; 99285; A9537; J1200; J1643; J1815; J1885; J2250; J2270; J2405; J2470; J2543; J2805; J3010; J3475; J7030; Q0162; A9270

== ENCOUNTER 2025-04-07 15:54 | Emergency (ER) | payer MEDICAID, SELFPAY ==
[2025-04-07 16:12] VITALS: BP 143/100; BP 145/105; PULSE 107; RESP 20; TEMP 36.8; O2SAT 96; BMI 40.6
--- NOTE | 2025-04-07 16:19 | EDNOTE_ITS ---
<Statement entered by Kindra Barraza MD - 04/20/25 14:16> As co-signing physician, I was present and available for consult prn. I concur with the plan and care as documented by the midlevel provider. ED Abdominal Pain RME/HPI General Chief Complaint: Abdominal Pain Stated complaint: ABD PAIN X 3 WKS; N/V Time seen by provider: 04/07/25 16:06 Arrival date/time: 04/07/25 15:54 Source: patient, RN notes reviewed and old records reviewed Mode of arrival: ambulatory Limitations: no limitations RME / HPI RME / HPI narrative: 49yof presents to ED for 3-week history of upper abdominal pain. Patient reports intermittent nausea/vomiting and few episodes of diarrhea. History of multiple abdominal surgeries including umbilical and ventral hernia repairs, hemicolectomy (colon CA 2020) and endometrial ablation. No fever, shortness of breath, chest pain or urinary symptoms reported. Patient has taken Tylenol with mild relief. Related Data Home Medications ?Medication ?Instructions ?Recorded ?Confirmed fenofibrate nanocrystallized 145 145 mg PO QDAY 07/08/24 mg tablet losartan 50 mg tablet 50 mg PO QDAY 07/08/2407/08 metformin 1,000 mg tablet 1,000 mg PO BIDWMEAL 5 07/08/24 Previous Rx's ?Medication ?Instructions ?Recorded ondansetron 4 mg disintegrating 4 mg PO Q8H PRN nausea and 07/11/24 tablet vomiting #30 tabs pantoprazole 40 mg tablet,delayed 40 mg PO QDAY #30 ta bs 07/11/24 release acetaminophen 500 mg tablet 1,000 mg (2 x 500 mg) PO Q 6H PRN 04/07/25 (Tylenol Extra Strength) pain #30 tabs famotidine 40 mg tablet (Pepcid) 40 mg PO QDAY #30 tab s 04/07/25 hyoscyamine sulfate 0.125 mg 0.125 mg PO Q6H PRN upper 04/07/25 sublingual tablet (Levsin/SL) abdominal pain #30 tabs ondansetron 4 mg disintegrating 4 mg PO Q6H PRN nausea and 04/07/25 tablet vomiting #10 tabs Allergies Allergy/AdvReac Type Severity Reaction Status Date / Time No Known Allergies Allergy Verified 04/07/25 15:58 Review of Systems Review of Systems Systems Reviewed: All systems reviewed, normal except as documented Constitutional Constitutional: Denies chills and Denies fever(s) Cardiovascular Cardiovascular: Denies chest pain and Denies dyspnea Respiratory Respiratory: Denies dyspnea Gastrointestinal Gastrointestinal: Reports abdominal pain, Reports loose stools, Reports nausea and Reports vomiting Genitourinary Genitourinary: Denies dysuria and Denies flank pain Past Medical History Past Medical History CARDIAC: Positive Hypertension GASTROINTESTINAL: Positive Gastrointestinal Disorders (MASH, colon CA 2020) and Obesity REPRODUCTIVE: Positive Endometriosis MUSCULOSKELETAL: Positive Fibromyalgia ENDOCRINE: Positive Diabetes Mellitus Type 2 Surgical History OTHER SURGICAL HX: Hysterectomy Umbilical hernia repair Multiple abdominal wall hernia repairs Laparoscopic ablation for endometriosis Left hemicolectomy for colon cancer 2020 Social History SMOKING STATUS: Never smoker SUBSTANCE USE: does not use ALCOHOL: Never ED Exam General Limitations: Present no limitations General appearance: Present alert, in no apparent distress and obese Head Head exam: Present atraumatic and normocephalic Eye Eye exam: Present normal appearance, PERRL and EOMI ENT ENT exam: Present normal exam and mucous membranes moist Neck Neck exam: Present normal inspection and full ROM Chest Chest inspection: Present normal inspection and symmetric chest wall rise Respiratory Respiratory exam: Present normal lung sounds bilaterally; Absent respiratory distress Cardiovascular Cardiovascular exam: Present normal rhythm and tachycardia (mild, HR 107) Abdominal Exam Abdominal exam: Present soft and tenderness (mild, epigastric); Absent distention, guarding or rebound Extremities Exam Extremities exam: Present normal inspection and full ROM Back Exam Back exam: Absent CVA tenderness (R) or CVA tenderness (L) Neurological Exam Neurological exam: Present alert and oriented X3 Psychiatric Psychiatric exam: Present normal affect and normal mood Skin Skin exam: Present warm, dry, intact and normal color Course Course Course Narrative: 1936: Consult to general surgery, Dr. Crockett. Reviewed CT imaging. States patient can follow-up outpatient in clinic. Quality Measures none Orders Category Date Time Status CT Screening NOW Care 04/07/25 16:[address] abdomen pelvis w con Stat Exams 04/07/25 16:26 Completed US gall bladder Stat Exams 04/07/25 16:23 Completed CBC Stat Lab 04/07/25 16:38 Completed CMP [Comprehensive Metabolic Panel] Stat Lab 04/07/25 16:38 Completed HCG Qualitative,Urine Stat Lab 04/07/25 16:48 Completed Lipase Stat Lab 04/07/25 16:38 Completed UA [Urinalysis] Stat Lab 04/07/25 16:48 Completed Famotidine [Pepcid] Med 04/07/25 16:23 Discontinued 40 mg PO X1 ONE Ketorolac Inj [Toradol Inj] Med 04/07/25 16:23 Discontinued 30 mg IM X1 ONE Ketorolac Inj [Toradol Inj] Med 04/07/25 16:46 Discontinued 30 mg IVP X1 ONE Lidocaine 2% Viscous [Xylocaine 2% Viscous] Med 04/07/25 16:23 Discontinued 15 ml PO X1 ONE Morphine* Inj Med 04/07/25 16:46 Discontinued 4 mg IVP X1 ONE Ondansetron Inj [Zofran Inj] Med 04/07/25 17:23 Discontinued 4 mg IVP X1 ONE Ondansetron Odt [Zofran Odt] Med 04/07/25 16:23 Discontinued 4 mg PO X1 ONE mg Hyd/Al Hyd/Jil Susp [Maalox Susp] Med 04/07/25 16:23 Discontinued 30 ml PO X1 ONE Vital Signs Vital signs: Vital Signs Temperature 98.2 F 04/07/25 16:12 Pulse Rate 107 H 04/07/25 16:12 Respiratory Rate 20 04/07/25 16:12 Blood Pressure 143/100 H 04/07/25 16:12 Pulse Oximetry (%) 96 04/07/25 16:12 Oxygen Delivery Method Room Air 04/07/25 16:12 Abdominal Pain MDM MDM Narrative MDM Narrative:: 49yof presents to ED for 3-week history of upper abdominal pain. Patient reports intermittent nausea/vomiting and few episodes of diarrhea. History of multiple abdominal surgeries including umbilical and ventral hernia repairs, hemicolectomy (colon CA 2020) and endometrial ablation. No fever, shortness of breath, chest pain or urinary symptoms reported. Patient has taken Tylenol with mild relief. Patient reassessed. She is feeling better, symptoms improved, tolerating po. Reviewed labs and imaging with patient. ED workup reassuring. Recommended outpatient follow-up with general surgery. Stable for discharge, RTED precautions given. Patient data External records reviewed:: [facility] previous records (admit 07/07/24 for abdominal pain) Clinical information provided by:: patient Social determinants that could affect healthcare access:: other (specify) (unemployed) Patient has the following chronic illnesses:: obesity, HTN, DM, MASH How is presenting disease/condition affected by chronic disease/condition?: uneffected by Evaluation data The following diagnostics were reviewed and interpreted by me:: lab results and radiology exam(s) Lab and/or radiology exams considered but not ordered:: none Interpretation Summary: Mild leukocytosis, wbc 13 No anemia LFTs with minimal elevation (improved from prior visits) Tbili wnl GB ultrasound: no gallstones per my read CT abd/pelvis: IMPRESSION: No liver lesions Normal appendix. 29 mm hernia defect left lower abdomen below the umbilicus, containing a loop of small bowel, axial image 179, although no definite incarcerated bowel and no bowel obstruction at this time Dictated By: Dandre Casey MD Medications / Prescriptions Medications or Prescriptions considered but not ordered:: no antibiotics recommended at this time Medication administrations:: Medication Administration History Discontinued Medications Al Hydrox/Mg Hydrox/Simethicone (Mg Hyd/Al Hyd/Jil (Maalox Reg) Susp 30 Ml Udc) 30 ml PO X1 ONE Stop: 04/07/25 16:24 Last Admin: 04/07/25 17:04 Dose: 30 ml Documented By: VL Famotidine (Famotidine 20 Mg Tablet) 40 mg PO X1 ONE Stop: 04/07/25 16:24 Last Admin: 04/07/25 17:04 Dose: 40 mg Documented By: VL Ketorolac Tromethamine (Ketorolac Inj 60 Mg/2 Ml Vial) 30 mg IM X1 ONE Stop: 04/07/25 16:24 Last Admin: 04/07/25 17:05 Dose: Not Given Documented By: VL Non-Admin Reason: Cancelled by Provider Ketorolac Tromethamine (Ketorolac Inj 30 Mg/Ml Vial) 30 mg IVP X1 ONE Stop: 04/07/25 16:47 Last Admin: 04/07/25 17:18 Dose: 30 mg Documented By: BY Lidocaine HCl (Lidocaine Viscous 2% 15 Ml Udc) 15 ml PO X1 ONE Stop: 04/07/25 16:24 Last Admin: 04/07/25 17:04 Dose: 15 ml Documented By: VL Morphine Sulfate (Morphine Sulf Inj 4 Mg/Ml Vial) 4 mg IVP X1 ONE Stop: 04/07/25 16:47 Last Admin: 04/07/25 17:22 Dose: 4 mg Documented By: ED Ondansetron HCl (Ondansetron Odt 4 Mg Tabrap) 4 mg PO X1 ONE; Protocol Stop: 04/07/25 16:24 Last Admin: 04/07/25 17:04 Dose: 4 mg Documented By: VL Ondansetron HCl (Ondansetron Inj 2 Mg/Ml Inj 2 Ml) 4 mg IVP X1 ONE; Protocol Stop: 04/07/25 17:24 Last Admin: 04/07/25 17:40 Dose: 4 mg Documented By: BY above medications administered in ED Consultations Consultation(s) initiated? (list below): Yes Consultation #1 (Physician, Specialty, Details): General surgery, Dr. Crockett. See ED course Diagnosis Differential diagnosis abdominal pain: abdominal pain, acute appendicitis, calculus of kidney, constipation, diverticulitis, gastroenteritis, pancreatitis and small bowel obstruction Most likely diagnosis given after review of the tests above:: Abdominal pain, hernia defect Admission Indicated Admission indicated?: not indicated Admission Request Was there a request for admission?: No Disposition Plan Disposition Plan: Discharge Discharge Attestation Discharge Attestation: The patient and all family members were given an opportunity to ask questions and understood the discharge instructions. Discharge instructions specifically effects, indications for sooner follow up or return to the emergency department, and the expected course of current diagnosis. Patient condition: Stable Discharge Plan Plan Patient Disposition: HOME (Self Care) Patient condition on transfer: Stable Prescriptions/Referrals Prescriptions/Med Rec: New ondansetron 4 mg tablet,disintegrating 4 mg PO Q6H PRN (Reason: nausea and vomiting) Qty: 10 0RF famotidine [Pepcid] 40 mg tablet 40 mg PO QDAY Qty: 30 0RF acetaminophen [Tylenol Extra Strength] 500 mg tablet 1,000 mg PO Q6H PRN (Reason: pain) Qty: 30 0RF hyoscyamine sulfate [Levsin/SL] 0.125 mg tablet, sublingual 0.125 mg PO Q6H PRN (Reason: upper abdominal pain) Qty: 30 0RF No Action losartan 50 mg Tablet 50 mg PO QDAY metformin 1,000 mg Tablet 1,000 mg PO BIDWMEAL fenofibrate nanocrystallized 145 mg Tablet 145 mg PO QDAY pantoprazole 40 mg tablet,delayed release (DR/EC) 40 mg PO QDAY Qty: 30 0RF ondansetron 4 mg tablet,disintegrating 4 mg PO Q8H PRN (Reason: nausea and vomiting) Qty: 30 0RF Referrals: [facility] [Other] - In 1 week Mery Crockett MD [Physician, General Surgery] Referral Note: Call to schedule an appointment as needed. Ender Cuba MD [Physician, Gastroenterology] Referral Note: Call to schedule an appointment as needed. No Primary/Family,Physician [Primary Care Provider] - In 1 week Problem List Clinical Impression: Epigastric abdominal pain, Ventral hernia Patient/Caregiver Discharge Instructions Education Materials: How a Hernia Develops, ED Epigastric Pain (Uncertain Cause) Print Language: Estonian Stand Alone Forms: [employer]islinn Award Info., Patient Portal Info Letter PA/PERSON INVESTIGATOR Supervising Physician PA/PERSON INVESTIGATOR Supervising Physician: Madi
--- NOTE | 2025-04-07 16:23 | XR_ITS ---
Abdomen sonogram limited TECHNIQUE: Grayscale sonographic images of upper abdomen Date and time: April 07, 2025, 1644 hours INDICATIONS: Abdominal pain today. FINDINGS: Normal gallbladder Normal common bile duct 0.4 cm Pancreatic head 3.1 cm Liver 20.6 cm fatty infiltration smooth contour no focal liver lesions Normal hepatopetal portal venous flow Patent IVC IMPRESSION: Normal gallbladder Moderate hepatomegaly fatty infiltration
--- NOTE | 2025-04-07 16:26 | XR_ITS ---
Examination: CT abdomen with intravenous contrast CT pelvis with intravenous contrast 2-D coronal reconstructions 2-D sagittal reconstructions Date and time of exam: April 07, 2025, 1833 hours, comparison July 07, 2024 INDICATIONS: Diagnosis malignant neoplasm of the colon 2019, onset upper abdominal pain nausea vomiting beginning 3 weeks ago. CTDI: vol (mGy) 16.7 DLP: (mGycm) 954 Technique: Multiple axial sections of the abdomen and pelvis have been obtained. 64 slice high-resolution scanner used. 3 mm axial sections have been obtained, post intravenous injection 60 cc [id number] 2-D sagittal, coronal reconstructions obtained. Low dose protocols were performed. One or more of the following dose reduction techniques were used; automated exposure control, adjustment of the mA and/or KV according to patient size, use of iterative reconstruction technique. Findings: No visualized liver or splenic lesions No gallstones No pancreatic or adrenal mass No renal or ureteral calculi, no hydronephrosis Aorta normal size Normal appendix Scarring near the umbilicus No bowel obstruction Hernia defect below the umbilicus left lower abdomen, axial image 179, measuring 29 mm, containing small bowel although no definite incarcerated bowel Absent uterus Bladder intact Moderate osteopenia IMPRESSION: No liver lesions Normal appendix. 29 mm hernia defect left lower abdomen below the umbilicus, containing a loop of small bowel, axial image 179, although no definite incarcerated bowel and no bowel obstruction at this time
[2025-04-07 16:48] LABS: Basophils # (Auto) 0.1 Thou/mm3 (0.0-0.2); Basophils % (Auto) 1 % (0-2.5); Eosinophils # (Auto) 0.1 Thou/mm3 (0.0-0.5); Eosinophils % (Auto) 1 % (0-10); Hematocrit 39.5 % (36.0-46.0); Hemoglobin 12.9 g/dL (12.0-16.0); Immature Granulocytes Auto 0.05 Thou/mm3 (0.00-0.00); Lymphocytes # (Auto) 2.6 Thou/mm3 (1.0-4.8); Lymphocytes % (Auto) 20 % (10-50); Mean Corpuscular HGB Conc 32.7 g/dl (31.0-37.0); Mean Corpuscular Hemoglobin 29.3 pg (25.0-35.0); Mean Corpuscular Volume 90 fL (80-100); Monocytes # (Auto) 0.6 Thou/mm3 (0.0-0.8); Monocytes % (Auto) 5 % (0-12); Neutrophils # (Auto) 9.8 Thou/mm3 (1.8-7.7); Neutrophils % (Auto) 74 % (37-80); Nucleated Red Blood Cell # 0.00 Thou/mm3 (0.00-0.00); Nucleated Red Blood Cell % 0 /100 WBC (0); Platelet Count 326 Thou/mm3 (140-440); RDW Standard Deviation 44.8 fL (36.4-46.3); Red Blood Count 4.41 Miln/mm3 (4.00-5.20); White Blood Count 13.3 Thou/mm3 (3.6-11.0)
[2025-04-07 16:53] LABS: Collection Type, Urine Clean Catch
[2025-04-07 16:59] LABS: HCG Qualitative,Urine Negative
[2025-04-07 17:04] LABS: Bacteria,Urine Rare; Bilirubin,Urine Negative (Negative); Blood,Urine Negative (Negative); Clarity,Urine Clear (Clear/Hazy); Color,Urine Yellow (Lt Yel-Yel); Glucose, Urine 4+ (Negative); Ketones,Urine Negative (Negative); Leukocyte Esterase,Urine Positive (Negative); Nitrite,Urine Negative (Negative); PH,Urine 5.5 (5.0-7.0); Protein,Urine Trace (Neg - Trace); RBC,Urine 3 /hpf (0-3); Specific Gravity,Urine 1.027 (1.001-1.035); Squamous Epithelial Cell,Urine 1 /hpf (0-5); Urobilinogen,Urine Negative mg/dL (0.0-1.0); WBC,Urine 2 /hpf (0-5)
[2025-04-07] MEDS: ONDANSETRON ODT 4 MG TABRAP PO (17:04)
[2025-04-07] MEDS: MG HYD/AL HYD/SIME (Maalox Reg) SUSP 30 ML UDC PO (17:04)
[2025-04-07] MEDS: LIDOCAINE VISCOUS 2% 15 ML UDC PO (17:04)
[2025-04-07] MEDS: FAMOTIDINE 20 MG TABLET 40 MG PO (17:04)
[2025-04-07 17:08] VITALS: BP 141/89; PULSE 93; RESP 19; O2SAT 98
[2025-04-07 17:08] LABS: Alanine Aminotransferase 75 U/L (10-49); Albumin, Serum 4.5 gm/dL (3.5-5.0); Albumin/Globulin Ratio 1.6 (1.2-2.2); Alkaline Phosphatase 119 U/L (46-116); Anion Gap 8 (7-16); Aspartate Amino Transferase 50 U/L (0-34); BUN/Creatinine Ratio 13 Ratio (12-20); Bilirubin,Total 0.3 mg/dL (0.3-1.2); Blood Urea Nitrogen 10 mg/dL (9-23); Calcium 9.6 mg/dL (8.3-10.6); Calcium (Corrected) 9.6 mg/dL (8.5-10.1); Carbon Dioxide 27.2 mMol/L (20.0-31.0); Chloride 108 mMol/L (98-107); Creatinine (Component) 0.8 mg/dL (0.6-1.3); Estimated Creatinine Clearance 104.3 mL/min (>60); Globulin 2.9 gm/dL (2.3-3.5); Glucose 150 mg/dL (74-106); Lipase 39 U/L (12-53); Osmolality,Calculated 286 (275-295); Potassium 4.1 mMol/L (3.4-5.1); Sodium 143 mMol/L (136-145); Total Protein 7.4 gm/dL (5.7-8.2); eGFR > 60 See Note
[2025-04-07] MEDS: KETOROLAC INJ 30 MG/ML VIAL IVP (17:18)
[2025-04-07] MEDS: MORPHINE SULF INJ 4 MG/ML VIAL IVP (17:22)
[2025-04-07] MEDS: ONDANSETRON INJ 2 MG/ML INJ 2 ML 4 MG IVP (17:40)
[2025-04-07 19:12] VITALS: BP 110/73; PULSE 79; RESP 18; TEMP 36.7; O2SAT 96
[2025-04-07 20:10] VITALS: TEMP 36.6
== END 2025-04-07 20:32 | disposition home or self-care (01) ==
PROVIDERS: Physician Assistant; Emergency Provider Emergency Medicine
DX: K43.9 Ventral hernia without obstruction or gangrene (principal); R10.13 Epigastric pain
CPT/HCPCS: 36415; 74177; 76705; 80053; 81001; 81025; 83690; 85025; 96374; 96375; 99285; A4649; J1885; J2270; J2405; J3490; Q0162; Q9967; A9270